=== PATIENT | female | born 1930 | race Hispanic/Latino ===

== ENCOUNTER 2017-01-18 15:16 | Inpatient (IN) | payer MEDICARE ==
[2017-01-18] MEDS ORDERED: ZOFRAN IV ONE (15:40)
[2017-01-18] MEDS ORDERED: ZOFRAN ONE (15:40)
--- NOTE | 2017-01-18 17:19 | Emergency Department Report ---
ED Fall HPI - General Chief Complaint: Fall Stated Complaint: FALL Time Seen by Provider: 01/18/17 16:45 Source: patient, EMS Mode of arrival: Stretcher - History of Present Illness MD Complaint: fall -: Sudden Fall From: standing When Fall Occurred: 1 hour [employer] Fall Witnessed: yes, by family Place Fall Occurred: home Loss of Consciousness: none Prolonged Down Time?: no Symptoms Prior to Fall: none Location: head Severity: mild Severity scale (0 -10): 3 Quality: sharp, dull Context: tripped/slipped Associated Symptoms: headache. denies: neck pain, chest paint, shortness of breath, abdominal pain, hematuria, lightheaded, vertigo - Related Data Previous Rx's Medication Instructions Recorded Last Taken Type Ondansetron [Zofran Odt] 4 mg PO Q8HR #12 tab.rapdis 01/18/17 Unknown Rx Allergies Allergy/AdvReac Type Severity Reaction Status Date / Time Penicillins Allergy Unknown Verified 01/18/17 15:55 ED Review of Systems ROS: Stated complaint: FALL Other details as noted in HPI Comment: Unobtainable due to pts medical conditions ED Past Medical Hx - Past Medical History Hx Diabetes: Yes - Surgical History Hx Appendectomy: Yes Additional Surgical History: R shoulder, R knee - Social History Smoking Status: Never Smoker Substance Use Type: None - Medications Home Medications: Home Medications Medication Instructions Recorded Confirmed Last Taken Type Ondansetron [Zofran Odt] 4 mg PO Q8HR #12 tab.rapdis 01/18/17 Unknown Rx ED Physical Exam - General Limitations: No Limitations General appearance: alert, in no apparent distress - Eye Eye exam: Present: normal appearance, PERRL - ENT ENT exam: Present: normal exam, mucous membranes moist - Neck Neck exam: Present: normal inspection - Respiratory Respiratory exam: Present: normal lung sounds bilaterally. Absent: respiratory distress - Cardiovascular Cardiovascular Exam: Present: regular rate, normal rhythm. Absent: systolic murmur, diastolic murmur, rubs, gallop - GI/Abdominal GI/Abdominal exam: Present: soft, normal bowel sounds - Extremities Exam Extremities exam: Present: normal inspection - Back Exam Back exam: Present: normal inspection, full ROM - Neurological Exam Neurological exam: Present: alert, altered, oriented X3, CN II-XII intact, normal gait - Psychiatric Psychiatric exam: Present: normal affect, normal mood - Skin Skin exam: Present: warm, dry, intact, normal color. Absent: rash ED Course Vital Signs 01/18/17 01/18/17 01/18/17 15:50 16:52 16:55 Temperature 98.1 F Pulse Rate 74 75 Respiratory 18 18 18 Rate Blood Pressure 208/80 Blood Pressure 160/79 [Left] O2 Sat by Pulse 99 99 99 Oximetry - Laceration /Wound Repair Face Wound Location: face Wound's Depth, Shape: superficial Wound Explored: clean Betadine Prep?: Yes Anesthesia: 1% Lidocaine Wound Debrided: minimal Wound Repaired With: sutures Suture Size/Type: 5:0 Layer Closure?: Yes Deep Layer Suture Size/Type: 5:0 Number Deep Layer Sutures: 6 Sterile Dressing Applied?: Yes ED Medical Decision Making - Medical Decision Making patient had a ground level fall after tripping while moving a chair and landed on her head , no LOC per and brought here for care. head CT negative and no signs of bleeding or fractures, wound were repaired by me, and patient tolerated well, she still feels a bit nauseated and feels unable to go home with her 89 yo , i consulted with dr. canales and agree with admission. Critical care attestation.: If time is entered above; I have spent that time in minutes in the direct care of this critically ill patient, excluding procedure time. ED Disposition Clinical Impression: Nausea & vomiting Disposition: OP ADMITTED IP TO THIS HOSP Is pt being admited?: Yes Does the pt Need Aspirin: No Condition: Good Instructions: Suture Care (ED), Laceration (ED), Concussion (ED), Minor Head Injury (ED) Prescriptions: Ondansetron [Zofran Odt] 4 mg PO Q8HR #12 tab.rapdis Referrals: PRIMARY CARE, [Primary Care Provider] - 3-5 Days Time of Disposition: 19:42
--- NOTE | 2017-01-18 17:39 | Cat Scan Report ---
FINAL REPORT PROCEDURE: CT HEAD/BRAIN WO CON TECHNIQUE: Computerized tomography of the head was performed without contrast material. HISTORY: fall, CANTU COMPARISON: No prior studies are available for comparison. FINDINGS: Brain: There is no evidence of intracranial hemorrhage. No parenchymal hemorrhage is seen. No mass lesions or mass effect is identified. No abnormal extra-axial fluid collections are seen. There is a well-circumscribed calcified nodular density projecting inferiorly from the left side of the tentorium measuring 1.5 x 1.3 centimeters which appears represent a calcified meningioma. No significant mass effect is seen small old area of encephalomalacia visualized posterior lateral aspect of the right cerebellar hemisphere. There is some decreased density seen in the periventricular white matter without mass effect. This is fairly symmetric and does not exhibit any mass effect consistent with gliosis probably on the basis of microvascular disease or white matter changes of aging. Ventricles: The ventricles, sulcal pattern and fissures are prominent consistent with atrophy. Bones: No evidence of acute fracture. There is artifact from a bandage overlying the right side of the forehead. Laceration appears to be present in the same location Paranasal sinuses: clear Mastoid air cells: clear IMPRESSION: There is evidence of moderate atrophy and gliosis. No evidence of intracranial hemorrhage or skull fracture. Small old area of encephalomalacia right cerebellar hemisphere as described. Densely calcified nodular density projects inferiorly from the left side of the tentorium suggesting a small calcified meningioma. No significant mass effect is visualized Laceration and bandaging seen overlying the right side of the forehead.
[2017-01-18] MEDS ORDERED: XYLOCAINE 1%/ EPI 1:100,000 INFILTRATI ONE (17:53)
[2017-01-18] MEDS ORDERED: REGLAN IV ONE (17:53)
[2017-01-18] MEDS ORDERED: BOOSTRIX IM ONE (19:00)
[2017-01-18 20:10] LABS: Hematocrit 35.5 % (30.3-42.9); Hemoglobin 11.1 gm/dl (10.1-14.3); Mean Corpuscular HGB Conc 31 % (30-34); Mean Corpuscular Hemoglobin 27 pg (28-32); Mean Corpuscular Volume 86 fl (79-97); Red Blood Count 4.13 M/mm3 (3.65-5.03); Red Cell Distribution Width 16.5 % (13.2-15.2); White Blood Count 18.7 K/mm3 (4.5-11.0)
[2017-01-18 20:20] LABS: INR 0.96 (0.87-1.13); Partial Thromboplastin Time < 20.0 Sec. (24.2-36.6)
[2017-01-18 20:36] LABS: Alanine Aminotransferase 12 units/L (7-56); Albumin/Globulin Ratio 1.1 %; Alkaline Phosphatase 70 units/L (35-129); Anion Gap 22 mmol/L; BUN/Creatinine Ratio 21.25; Bilirubin,Total 0.2 mg/dL (0.1-1.2); Blood Urea Nitrogen 17 mg/dL (7-17); Calcium 9.2 mg/dL (8.4-10.2); Carbon Dioxide 21 mmol/L (22-30); Chloride 95.5 mmol/L (98-107); Glucose 265 mg/dL (65-100); Potassium 4.6 mmol/L (3.6-5.0); Sodium 134 mmol/L (137-145); Total Protein 7.8 g/dL (6.3-8.2)
--- NOTE | 2017-01-18 20:44 | Admit Criteria Form ---
Admission Criteria Documentation: VOMITING Clinical Indications for Admission to Inpatient Care ( Place 'X' for any and all applicable criteria): Admission is indicated for ANY ONE of the following(1)(2)(3): [ X]I. Inpatient admission required rather than observation care because of ANY ONE of the following: [ ]i) Hemodynamic instability that is severe or persistent [ ]ii) Vomiting that is severe or persistent [ ]iii) Severe electrolyte abnormalities requiring inpatient care [ ]iv) Severe pain requiring acute inpatient management [ ]v) High fever or infection requiring inpatient admission as indicated by ANY ONE of the following(7)(8): [ ]1) Appropriate outpatient or observation care antimicrobial treatment unavailable, not effective, or not feasible [ ]2) Documented bacteremia [ ]3) Temp >104.9 degrees F (40.5 degrees C) (oral) [ ]4) Temp >103.1 degrees F (39.5 C) (oral) or <96.8 degrees F (36 C) (rectal) that does not respond to all emergency treatment measures [ ]vi) Acute renal failure [ ]vii) IV fluid to replace significant ongoing losses (greater than 3 L/m2 per day) [ ]viii) Parenteral nutrition regimen that must be implemented on inpatient basis [X ]ix) Other condition, treatment or monitoring requiring inpatient admission [ ]II. Complete or partial gastrointestinal obstruction [ ]III. Other cause of vomiting requiring hospitalization (eg, poisoning, increased intracranial pressure) [ ]IV. Vomiting due to significant metabolic derangement (eg, severe hypercalcemia, diabetic ketoacidosis) Extended stay beyond goal length of stay may be needed for(1)(4): [ ]a) Severe vomiting [ ]b) Persistent vomiting, vital sign changes, severe electrolyte imbalance , or diagnosed cause of vomiting that requires continued hospitalization (eg, gastrointestinal obstruction , increased intracranial pressure) [ ]c) Surgery to treat identified causes of vomiting (eg, bowel obstruction , intracranial process) [ ]d) Comorbid illness that requires inpatient care (eg, acute heart failure , renal failure) [ ]e) Need for inpatient endoscopy The original [facility] [facility] content created by [employer] has been revised. The portions of the content which have been revised are identified through the use of italic text or in bold, and [facility] [employer] has neither reviewed nor approved the modified material. All other unmodified content is copyright [facility]. Please see references footnoted in the original [facility] edition 2016 Admission Criteria Met: Yes
[2017-01-18 21:16] LABS: Platelet Count 172 K/mm3 (140-440)
[2017-01-18 22:36] LABS: Blastocytes % (Manual) 0 %; Eosinophils % (Manual) 0 % (0.0-4.3)
--- NOTE | 2017-01-18 22:37 | History and Physical Report ---
History of Present Illness Date of examination: 01/18/17 Date of admission: 01/18/17 19:43 Chief complaint: Fall with concussion and Laceration to forehead nose and cheek. History of present illness: 86 y/o female with hx of diabetes tripped and fell down .Had concussion injury to head and lacerations to forehead nose and rt cheek.No LOC.No AMS. No SOB. Past History Past Medical History: diabetes Past Surgical History: Other (Rt Knee and shoulder surgery) Social history: , lives with family. denies: smoking, alcohol abuse Family history: no significant family history Medications and Allergies Allergies Allergy/AdvReac Type Severity Reaction Status Date / Time Penicillins Allergy Unknown Verified 01/18/17 15:55 Home Medications Medication Instructions Recorded Confirmed Last Taken Type Ondansetron [Zofran Odt] 4 mg PO Q8HR #12 tab.rapdis 01/18/17 Unknown Rx Review of Systems All systems: negative Constitutional: no weight loss, no weight gain Ears, nose, mouth and throat: no sore throat, no swelling in mouth, no swelling in throat Cardiovascular: no chest pain, no orthopnea, no palpitations, no syncope, no lightheadedness, no shortness of breath Respiratory: no cough with sputum, no excessive sputum, no hemoptysis Gastrointestinal: no nausea, no vomiting, no diarrhea, no constipation Genitourinary Female: no dysuria, no urinary frequency, no urgency, no stress incontinence Menstruation: ammenorrhea Musculoskeletal: neck pain, no low back pain Integumentary: other (Laceration to forehead rt nose and cheek.), no rash, no pruritis, no redness Neurological: change in mentation (for couple of hours), confusion, no seizures , no syncope, no change in speech Psychiatric: no anxiety, no depression Endocrine: no cold intolerance, no heat intolerance, no polyphagia, no excessive thirst, no polydipsia, no polyuria Hematologic/Lymphatic: no easy bruising, no easy bleeding Allergic/Immunologic: no urticaria, no allergic rhinitis, no wheezing Exam - Constitutional Vitals: Temp Pulse Resp BP Pulse Ox 98.1 F 86 18 138/42 98 01/18/17 15:50 01/18/17 20:00 01/18/17 20:00 01/18/17 20:00 01/18/17 20:00 General appearance: Present: no acute distress, well-nourished, other ( Laceration to forehead rt and nose and rt cheek.Deep laceration on Rt forehead) - EENT Eyes: Present: PERRL ENT: hearing intact, clear oral mucosa - Neck Neck: Present: supple, normal ROM - Respiratory Respiratory effort: normal Respiratory: bilateral: CTA - Cardiovascular Rhythm: regular Heart Sounds: Present: S1 & S2. Absent: rub, click - Extremities Extremities: pulses symmetrical, No edema Peripheral Pulses: within normal limits - Abdominal General gastrointestinal: Present: soft, non-tender, non-distended, normal bowel sounds Female genitourinary: Present: normal - Integumentary Integumentary: Present: clear, warm, dry - Musculoskeletal Musculoskeletal: gait normal, strength equal bilaterally - Psychiatric Psychiatric: appropriate mood/affect, intact judgment & insight - Neurologic Neurologic: CNII-XII intact, moves all extremities - Allied Health Allied health notes reviewed: nursing, case management Results - Labs CBC & Chem 7: 01/18/17 19:46 01/18/17 19:46 Labs: Laboratory Last Values WBC 18.7 K/mm3 (4.5-11.0) H 01/18/17 19:46 RBC 4.13 M/mm3 (3.65-5.03) 01/18/17 19:46 Hgb 11.1 gm/dl (10.1-14.3) 01/18/17 19:46 Hct 35.5 % (30.3-42.9) 01/18/17 19:46 MCV 86 fl (79-97) 01/18/17 19:46 MCH 27 pg (28-32) L 01/18/17 19:46 MCHC 31 % (30-34) 01/18/17 19:46 RDW 16.5 % (13.2-15.2) H 01/18/17 19:46 Plt Count 172 K/mm3 (140-440) 01/18/17 19:46 Seg Neutrophils % [employer] 01/18/17 19:46 PT 12.7 Sec. (12.2-14.9) 01/18/17 19:46 INR 0.96 (0.87-1.13) 01/18/17 19:46 APTT < 20.0 Sec. (24.2-36.6) L 01/18/17 19:46 Sodium 134 mmol/L (137-145) L 01/18/17 19:46 Potassium 4.6 mmol/L (3.6-5.0) 01/18/17 19:46 Chloride 95.5 mmol/L (98-107) L 01/18/17 19:46 Carbon Dioxide 21 mmol/L (22-30) L 01/18/17 19:46 Anion Gap 22 mmol/L 01/18/17 19:46 BUN 17 mg/dL (7-17) 01/18/17 19:46 Creatinine 0.8 mg/dL (0.7-1.2) 01/18/17 19:46 Estimated GFR > 60 ml/min 01/18/17 19:46 BUN/Creatinine Ratio 21.25 % 01/18/17 19:46 Glucose 265 mg/dL (65-100) H 01/18/17 19:46 POC Glucose 279 (70-105) H 01/18/17 21:38 Calcium 9.2 mg/dL (8.4-10.2) 01/18/17 19:46 Total Bilirubin 0.2 mg/dL (0.1-1.2) 01/18/17 19:46 AST 20 units/L (5-40) 01/18/17 19:46 ALT 12 units/L (7-56) 01/18/17 19:46 Alkaline Phosphatase 70 units/L (35-129) 01/18/17 19:46 Total Protein 7.8 g/dL (6.3-8.2) 01/18/17 19:46 Albumin 4.0 g/dL (3.9-5) 01/18/17 19:46 Albumin/Globulin Ratio 1.1 % 01/18/17 19:46 Short CBC 01/18/17 Range/Units 19:46 WBC 18.7 H (4.5-11.0) K/mm3 Hgb 11.1 (10.1-14.3) gm/dl Hct 35.5 (30.3-42.9) % Plt Count 172 (140-440) K/mm3 BMP 01/18/17 19:46 Sodium 134 L Potassium 4.6 Chloride 95.5 L Carbon Dioxide 21 L BUN 17 Creatinine 0.8 Glucose 265 H Calcium 9.2 Liver Function 01/18/17 Range/Units 19:46 Total Bilirubin 0.2 (0.1-1.2) mg/dL AST 20 (5-40) units/L ALT 12 (7-56) units/L Alkaline Phosphatase 70 (35-129) units/L Albumin 4.0 (3.9-5) g/dL - Imaging and Cardiology Chest x-ray: report reviewed (NAF) CT Scan - head: report reviewed (NAF) Assessment and Plan Advance Directives: Yes (full code) VTE prophylaxis?: Chemical ( is) Plan of care discussed with patient/family: Yes - Patient Problems (1) Concussion Current Visit: Yes Status: Acute Qualifiers: Encounter type: initial encounter Loss of consciousness presence/duration: without LOC Qualified Code(s): S06.0X0A - Concussion without loss of consciousness, initial encounter Plan to address problem: Observe for 24 hrs Discharge tomorrow if able to walk. (2) Laceration Current Visit: Yes Status: Acute Plan to address problem: Patient had Laceration repaired in ER on forehead.The nose and cheek lacerations are superficial. (3) Diabetes Current Visit: Yes Status: Chronic Qualifiers: Diabetes mellitus type: type 2 Diabetes mellitus complication status: without complication Diabetes mellitus complication detail: D Diabetic retinopathy severity: D Proliferative retinopathy type: P Diabetes mellitus macular edema: D Diabetes mellitus correction insulin use: without correction use Laterality: L Chronic kidney disease stage: C Qualified Code(s): E11.9 - Type 2 diabetes mellitus without complications Plan to address problem: Coverage for now. May need to be on oral hypoglycemics at time of discharge. Or PCP canstart the hypoglycemics. (4) Leukocytosis Current Visit: Yes Status: Acute Qualifiers: Leukocytosis type: L Plan to address problem: ??Stress induced. (5) DVT prophylaxis Current Visit: Yes Status: Acute Plan to address problem: On lovenox
[2017-01-18 22:41] LABS: Anisocytosis 1+; Ovalocytes 1+
[2017-01-18 22:47] LABS: Diff Status Complete
[2017-01-19] MEDS: NACL 0.9% 1000 ML 1,000 ML IV SCH (00:24)
[2017-01-19] MEDS: ZOFRAN IV PRN ×3 (00:24→13:11)
[2017-01-19] MEDS: NOVOLOG SUB-Q SCH ×5 (00:35→22:54)
--- NOTE | 2017-01-19 08:54 | XRay Report ---
AP CHEST : 01/18/17 15:16:00 CLINICAL: Fall. COMPARISON:04/05/09 FINDINGS: Cardiomegaly. Normal pulmonary vessels.Aortic calcification. The lungs are normally expanded and clear. The bones and soft tissues are unremarkable.No fracture. No pneumothorax. IMPRESSION: No acute cardiopulmonary process and no apparent injury from fall.
[2017-01-19 09:29] LABS: Basophils % (Auto) 0.1 % (0.0-1.8); Hematocrit 30.8 % (30.3-42.9); Hemoglobin 9.7 gm/dl (10.1-14.3); Mean Corpuscular HGB Conc 31 % (30-34); Mean Corpuscular Hemoglobin 27 pg (28-32); Mean Corpuscular Volume 86 fl (79-97); Platelet Count 304 K/mm3 (140-440); Red Blood Count 3.57 M/mm3 (3.65-5.03); Red Cell Distribution Width 16.4 % (13.2-15.2); White Blood Count 14.1 K/mm3 (4.5-11.0)
[2017-01-19 09:40] LABS: Anion Gap 17 mmol/L; Blood Urea Nitrogen 16 mg/dL (7-17); Calcium 8.5 mg/dL (8.4-10.2); Carbon Dioxide 25 mmol/L (22-30); Chloride 98.2 mmol/L (98-107); Glucose 155 mg/dL (65-100); Potassium 4.3 mmol/L (3.6-5.0); Sodium 136 mmol/L (137-145)
--- NOTE | 2017-01-19 15:28 | Progress Note ---
Assessment and Plan Assessment and plan: 86-year-old woman with past medical history of diabetes who presents after she was found on the floor by a neighbor. She state that she does not actually remember what happened, she was walking down the stairs, and neck and she found herself on the ground. And her neighbor found her. She denies any chest pain prior to it, she denies any prodrome or any symptoms prior to passing out. She just remembers waking up on the floor with a headache and some nausea. Of note she actually had multiple syncopal episodes recently, her family had brought her life alert which she refuses to use, she's been found by a neighbor's, workers who happened to be passing by around her house and she had passed out and bleed on the floor for a while. She lives with her who is 95 years old, and he did not have any help in the house. 1. Syncope Concern for cardiac etiology given the presentation. Put her on telemetry, check a troponin, obtain echocardiogram. Cardiology consultation. 2. Trauma CT of the head does not show any intracranial bleed or intracranial injury. Treatment with pain medications 3. Nausea this is most likely due to concussion, treated with antiemetics 4. Diabetes Continue insulins History Interval history: she is c/o headache in middle of her forehead where she hit it, she is also c/o nausea that occurs when she moves her head Hospitalist Physical - Physical exam Narrative exam: General: Patient appears well in no distress HEENT: Laceration on the forehead, multiple bruising consistent with facial trauma cardiac: S1-S2 heard lungs: clear to auscultation, abdomen: soft, nontender, nondistended bowel sounds positive extremities: no edema clubbing or cyanosis Skin: no rash or lesion Neuro: no focal deficit Psych: appropriate behavior and mood, cognition intact - Constitutional Vitals: Temp Pulse Resp BP Pulse Ox 98.9 F 92 H 16 151/69 98 01/19/17 08:00 01/19/17 08:00 01/19/17 08:00 01/19/17 08:00 01/19/17 08:00 General appearance: Present: no acute distress, well-nourished, other ( Laceration to forehead rt and nose and rt cheek.Deep laceration on Rt forehead) Results - Labs CBC & Chem 7: 01/19/17 09:08 01/19/17 09:08 Labs: Laboratory Last Values WBC 14.1 K/mm3 (4.5-11.0) H 01/19/17 09:08 RBC 3.57 M/mm3 (3.65-5.03) L 01/19/17 09:08 Hgb 9.7 gm/dl (10.1-14.3) L 01/19/17 09:08 Hct 30.8 % (30.3-42.9) 01/19/17 09:08 MCV 86 fl (79-97) 01/19/17 09:08 MCH 27 pg (28-32) L 01/19/17 09:08 MCHC 31 % (30-34) 01/19/17 09:08 RDW 16.4 % (13.2-15.2) H 01/19/17 09:08 Plt Count 304 K/mm3 (140-440) 01/19/17 09:08 Lymph % (Auto) 13.0 % (13.4-35.0) L 01/19/17 09:08 [place] % (Auto) 7.4 % (0.0-7.3) H 01/19/17 09:08 Eos % (Auto) 0.0 % (0.0-4.3) 01/19/17 09:08 Baso % (Auto) 0.1 % (0.0-1.8) 01/19/17 09:08 Lymph # 1.8 K/mm3 (1.2-5.4) 01/19/17 09:08 [place] # 1.0 K/mm3 (0.0-0.8) H 01/19/17 09:08 Eos # 0.0 K/mm3 (0.0-0.4) 01/19/17 09:08 Baso # 0.0 K/mm3 (0.0-0.1) 01/19/17 09:08 Add Manual Diff Complete 01/18/17 19:46 Total Counted 100 01/18/17 19:46 Seg Neutrophils % 79.5 % (40.0-70.0) H 01/19/17 09:08 Seg Neuts % (Manual) 82.0 % (40.0-70.0) H 01/18/17 19:46 Band Neutrophils % 8.0 % 01/18/17 19:46 Lymphocytes % (Manual) 6.0 % (13.4-35.0) L 01/18/17 19:46 Reactive Lymphs % (Man) 0 % 01/18/17 19:46 Monocytes % (Manual) 3.0 % (0.0-7.3) 01/18/17 19:46 Eosinophils % (Manual) 0 % (0.0-4.3) 01/18/17 19:46 Basophils % (Manual) 1.0 % (0.0-1.8) 01/18/17 19:46 Metamyelocytes % 0 % 01/18/17 19:46 Myelocytes % 0 % 01/18/17 19:46 Promyelocytes % 0 % 01/18/17 19:46 Blast Cells % 0 % 01/18/17 19:46 Nucleated RBC % Not Reportable 01/18/17 19:46 Seg Neutrophils # 11.2 K/mm3 (1.8-7.7) H 01/19/17 09:08 Seg Neutrophils # Man 15.3 K/mm3 (1.8-7.7) H 01/18/17 19:46 Band Neutrophils # 1.5 K/mm3 01/18/17 19:46 Lymphocytes # (Manual) 1.1 K/mm3 (1.2-5.4) L 01/18/17 19:46 Abs React Lymphs (Man) 0.0 K/mm3 01/18/17 19:46 Monocytes # (Manual) 0.6 K/mm3 (0.0-0.8) 01/18/17 19:46 Eosinophils # (Manual) 0.0 K/mm3 (0.0-0.4) 01/18/17 19:46 Basophils # (Manual) 0.2 K/mm3 (0.0-0.1) H 01/18/17 19:46 Metamyelocytes # 0.0 K/mm3 01/18/17 19:46 Myelocytes # 0.0 K/mm3 01/18/17 19:46 Promyelocytes # 0.0 K/mm3 01/18/17 19:46 Blast Cells # 0.0 K/mm3 01/18/17 19:46 WBC Morphology Not Reportable 01/18/17 19:46 Hypersegmented Neuts Not Reportable 01/18/17 19:46 Hyposegmented Neuts Not Reportable 01/18/17 19:46 Hypogranular Neuts Not Reportable 01/18/17 19:46 Smudge Cells Not Reportable 01/18/17 19:46 Toxic Granulation Not Reportable 01/18/17 19:46 Toxic Vacuolation Not Reportable 01/18/17 19:46 Dohle Bodies Not Reportable 01/18/17 19:46 Pelger-Huet Anomaly Not Reportable 01/18/17 19:46 Vicente Rods Not Reportable 01/18/17 19:46 Platelet Estimate Appears normal 01/18/17 19:46 Clumped Platelets Not Reportable 01/18/17 19:46 Plt Clumps, EDTA Not Reportable 01/18/17 19:46 Large Platelets Not Reportable 01/18/17 19:46 Giant Platelets Not Reportable 01/18/17 19:46 Platelet Satelliting Not Reportable 01/18/17 19:46 Plt Morphology Comment Not Reportable 01/18/17 19:46 RBC Morphology Not Reportable 01/18/17 19:46 Dimorphic RBCs Not Reportable 01/18/17 19:46 Polychromasia Not Reportable 01/18/17 19:46 Hypochromasia Not Reportable 01/18/17 19:46 Poikilocytosis Not Reportable 01/18/17 19:46 Anisocytosis 1+ 01/18/17 19:46 Microcytosis Not Reportable 01/18/17 19:46 Macrocytosis Not Reportable 01/18/17 19:46 Spherocytes Not Reportable 01/18/17 19:46 Pappenheimer Bodies Not Reportable 01/18/17 19:46 Sickle Cells Not Reportable 01/18/17 19:46 Target Cells Not Reportable 01/18/17 19:46 Tear Drop Cells Not Reportable 01/18/17 19:46 Ovalocytes 1+ 01/18/17 19:46 Helmet Cells Not Reportable 01/18/17 19:46 Gomes-Bluford Bodies Not Reportable 01/18/17 19:46 [place] Rings Not Reportable 01/18/17 19:46 [place] Cells Not Reportable 01/18/17 19:46 Bite Cells Not Reportable 01/18/17 19:46 Crenated Cell Not Reportable 01/18/17 19:46 Elliptocytes Not Reportable 01/18/17 19:46 Acanthocytes (Spur) Not Reportable 01/18/17 19:46 Rouleaux Not Reportable 01/18/17 19:46 Hemoglobin C Crystals Not Reportable 01/18/17 19:46 Schistocytes Not Reportable 01/18/17 19:46 Malaria parasites Not Reportable 01/18/17 19:46 Thor Bodies Not Reportable 01/18/17 19:46 Hem Pathologist Commnt No 01/18/17 19:46 PT 12.7 Sec. (12.2-14.9) 01/18/17 19:46 INR 0.96 (0.87-1.13) 01/18/17 19:46 APTT < 20.0 Sec. (24.2-36.6) L 01/18/17 19:46 Sodium 136 mmol/L (137-145) L 01/19/17 09:08 Potassium 4.3 mmol/L (3.6-5.0) 01/19/17 09:08 Chloride 98.2 mmol/L (98-107) 01/19/17 09:08 Carbon Dioxide 25 mmol/L (22-30) 01/19/17 09:08 Anion Gap 17 mmol/L 01/19/17 09:08 BUN 16 mg/dL (7-17) 01/19/17 09:08 Creatinine 0.8 mg/dL (0.7-1.2) 01/19/17 09:08 Estimated GFR > 60 ml/min 01/19/17 09:08 BUN/Creatinine Ratio 20.00 % 01/19/17 09:08 Glucose 155 mg/dL (65-100) H 01/19/17 09:08 POC Glucose 143 (70-105) H 01/19/17 10:52 Calcium 8.5 mg/dL (8.4-10.2) 01/19/17 09:08 Total Bilirubin 0.2 mg/dL (0.1-1.2) 01/18/17 19:46 AST 20 units/L (5-40) 01/18/17 19:46 ALT 12 units/L (7-56) 01/18/17 19:46 Alkaline Phosphatase 70 units/L (35-129) 01/18/17 19:46 Total Protein 7.8 g/dL (6.3-8.2) 01/18/17 19:46 Albumin 4.0 g/dL (3.9-5) 01/18/17 19:46 Albumin/Globulin Ratio 1.1 % 01/18/17 19:46 - Imaging and Cardiology Chest x-ray: image reviewed (no infiltrate)
[2017-01-19] MEDS: MORPHINE IV PRN (22:35)
[2017-01-19] MEDS: APRESOLINE IV PRN (22:35)
[2017-01-20] MEDS: ZOFRAN IV PRN ×2 (07:52→22:54)
[2017-01-20] MEDS: NACL 0.9% 1000 ML 1,000 ML IV SCH (07:52)
[2017-01-20] MEDS: NOVOLOG SUB-Q SCH ×4 (08:00→22:13)
--- NOTE | 2017-01-20 10:12 | Progress Note ---
Assessment and Plan Assessment and plan: 86-year-old woman with past medical history of diabetes who presents after she was found on the floor by a neighbor. She denies any chest pain prior to it, she denies any prodrome or any symptoms prior to passing out. Of note she actually had multiple syncopal episodes recently, her family had brought her life alert which she refuses to use, She lives with her who is 95 years old, and he did not have any help in the house. 1. Syncope Concern for cardiac etiology given the presentation. placed her on telemetry, monitor troponin, 2D echocardiogram showed normal EF. Noted Cardiology recommendation. Will do PT eval before discharge to assess functional mobility and gait training. 2. S/P fall with facial injury CT of the head does not show any intracranial bleed or intracranial injury. Treatment with pain medications 3. Nausea this is most likely due to concussion, treated with antiemetics 4. Diabetes Continue insulins, ADA diey History Interval history: Patient seen and examined. Medical records and medication list reviewed. No acute event overnight noted by the RN. Patient denies any chest pain or difficulty breathing. Patient is tolerating diet. had multiple fall recently Discussed plan of care at bedside with patient. Hospitalist Physical - Physical exam Narrative exam: GENERAL: elderly WF lying on bed appeared to be in no discomfort. HEENT: Normocephalic. Atraumatic. No conjunctival congestion or icterus. Patient has moist mucous membranes. NECK: Supple. Trachea midline. CHEST/LUNGS: Clear to auscultated bilaterally, breathing nonlabored. No wheezes crackles or rhonchi. HEART/CARDIOVASCULAR: Regular in rate and rhythm. S1 and S2 positive. ABDOMEN: Abdomen is soft, nontender. Patient has normal bowel sounds. SKIN: There is no rash. Warm and dry. NEURO: No focal motor deficit. Follows command. MUSCULOSKELETAL: No joint effusion or tenderness. EXTRIMITY: No edema, no cyanosis or clubbing. PSYCH: Cooperative. - Constitutional Vitals: Temp Pulse Resp BP Pulse Ox 98.8 F 76 20 160/59 93 01/20/17 08:59 01/20/17 08:59 01/20/17 08:59 01/20/17 08:59 01/19/17 23:30 General appearance: Present: no acute distress, well-nourished, other ( Laceration to forehead rt and nose and rt cheek.Deep laceration on Rt forehead) Results - Labs CBC & Chem 7: 01/19/17 09:08 01/19/17 09:08 Labs: Laboratory Last Values WBC 14.1 K/mm3 (4.5-11.0) H 01/19/17 09:08 RBC 3.57 M/mm3 (3.65-5.03) L 01/19/17 09:08 Hgb 9.7 gm/dl (10.1-14.3) L 01/19/17 09:08 Hct 30.8 % (30.3-42.9) 01/19/17 09:08 MCV 86 fl (79-97) 01/19/17 09:08 MCH 27 pg (28-32) L 01/19/17 09:08 MCHC 31 % (30-34) 01/19/17 09:08 RDW 16.4 % (13.2-15.2) H 01/19/17 09:08 Plt Count 304 K/mm3 (140-440) 01/19/17 09:08 Lymph % (Auto) 13.0 % (13.4-35.0) L 01/19/17 09:08 [place] % (Auto) 7.4 % (0.0-7.3) H 01/19/17 09:08 Eos % (Auto) 0.0 % (0.0-4.3) 01/19/17 09:08 Baso % (Auto) 0.1 % (0.0-1.8) 01/19/17 09:08 Lymph # 1.8 K/mm3 (1.2-5.4) 01/19/17 09:08 [place] # 1.0 K/mm3 (0.0-0.8) H 01/19/17 09:08 Eos # 0.0 K/mm3 (0.0-0.4) 01/19/17 09:08 Baso # 0.0 K/mm3 (0.0-0.1) 01/19/17 09:08 Add Manual Diff Complete 01/18/17 19:46 Total Counted 100 01/18/17 19:46 Seg Neutrophils % 79.5 % (40.0-70.0) H 01/19/17 09:08 Seg Neuts % (Manual) 82.0 % (40.0-70.0) H 01/18/17 19:46 Band Neutrophils % 8.0 % 01/18/17 19:46 Lymphocytes % (Manual) 6.0 % (13.4-35.0) L 01/18/17 19:46 Reactive Lymphs % (Man) 0 % 01/18/17 19:46 Monocytes % (Manual) 3.0 % (0.0-7.3) 01/18/17 19:46 Eosinophils % (Manual) 0 % (0.0-4.3) 01/18/17 19:46 Basophils % (Manual) 1.0 % (0.0-1.8) 01/18/17 19:46 Metamyelocytes % 0 % 01/18/17 19:46 Myelocytes % 0 % 01/18/17 19:46 Promyelocytes % 0 % 01/18/17 19:46 Blast Cells % 0 % 01/18/17 19:46 Nucleated RBC % Not Reportable 01/18/17 19:46 Seg Neutrophils # 11.2 K/mm3 (1.8-7.7) H 01/19/17 09:08 Seg Neutrophils # Man 15.3 K/mm3 (1.8-7.7) H 01/18/17 19:46 Band Neutrophils # 1.5 K/mm3 01/18/17 19:46 Lymphocytes # (Manual) 1.1 K/mm3 (1.2-5.4) L 01/18/17 19:46 Abs React Lymphs (Man) 0.0 K/mm3 01/18/17 19:46 Monocytes # (Manual) 0.6 K/mm3 (0.0-0.8) 01/18/17 19:46 Eosinophils # (Manual) 0.0 K/mm3 (0.0-0.4) 01/18/17 19:46 Basophils # (Manual) 0.2 K/mm3 (0.0-0.1) H 01/18/17 19:46 Metamyelocytes # 0.0 K/mm3 01/18/17 19:46 Myelocytes # 0.0 K/mm3 01/18/17 19:46 Promyelocytes # 0.0 K/mm3 01/18/17 19:46 Blast Cells # 0.0 K/mm3 01/18/17 19:46 WBC Morphology Not Reportable 01/18/17 19:46 Hypersegmented Neuts Not Reportable 01/18/17 19:46 Hyposegmented Neuts Not Reportable 01/18/17 19:46 Hypogranular Neuts Not Reportable 01/18/17 19:46 Smudge Cells Not Reportable 01/18/17 19:46 Toxic Granulation Not Reportable 01/18/17 19:46 Toxic Vacuolation Not Reportable 01/18/17 19:46 Dohle Bodies Not Reportable 01/18/17 19:46 Pelger-Huet Anomaly Not Reportable 01/18/17 19:46 Vicente Rods Not Reportable 01/18/17 19:46 Platelet Estimate Appears normal 01/18/17 19:46 Clumped Platelets Not Reportable 01/18/17 19:46 Plt Clumps, EDTA Not Reportable 01/18/17 19:46 Large Platelets Not Reportable 01/18/17 19:46 Giant Platelets Not Reportable 01/18/17 19:46 Platelet Satelliting Not Reportable 01/18/17 19:46 Plt Morphology Comment Not Reportable 01/18/17 19:46 RBC Morphology Not Reportable 01/18/17 19:46 Dimorphic RBCs Not Reportable 01/18/17 19:46 Polychromasia Not Reportable 01/18/17 19:46 Hypochromasia Not Reportable 01/18/17 19:46 Poikilocytosis Not Reportable 01/18/17 19:46 Anisocytosis 1+ 01/18/17 19:46 Microcytosis Not Reportable 01/18/17 19:46 Macrocytosis Not Reportable 01/18/17 19:46 Spherocytes Not Reportable 01/18/17 19:46 Pappenheimer Bodies Not Reportable 01/18/17 19:46 Sickle Cells Not Reportable 01/18/17 19:46 Target Cells Not Reportable 01/18/17 19:46 Tear Drop Cells Not Reportable 01/18/17 19:46 Ovalocytes 1+ 01/18/17 19:46 Helmet Cells Not Reportable 01/18/17 19:46 Gomes-Antoine Bodies Not Reportable 01/18/17 19:46 [place] Rings Not Reportable 01/18/17 19:46 Kami Cells Not Reportable 01/18/17 19:46 Bite Cells Not Reportable 01/18/17 19:46 Crenated Cell Not Reportable 01/18/17 19:46 Elliptocytes Not Reportable 01/18/17 19:46 Acanthocytes (Spur) Not Reportable 01/18/17 19:46 Rouleaux Not Reportable 01/18/17 19:46 Hemoglobin C Crystals Not Reportable 01/18/17 19:46 Schistocytes Not Reportable 01/18/17 19:46 Malaria parasites Not Reportable 01/18/17 19:46 Thor Bodies Not Reportable 01/18/17 19:46 Hem Pathologist Commnt No 01/18/17 19:46 PT 12.7 Sec. (12.2-14.9) 01/18/17 19:46 INR 0.96 (0.87-1.13) 01/18/17 19:46 APTT < 20.0 Sec. (24.2-36.6) L 01/18/17 19:46 Sodium 136 mmol/L (137-145) L 01/19/17 09:08 Potassium 4.3 mmol/L (3.6-5.0) 01/19/17 09:08 Chloride 98.2 mmol/L (98-107) 01/19/17 09:08 Carbon Dioxide 25 mmol/L (22-30) 01/19/17 09:08 Anion Gap 17 mmol/L 01/19/17 09:08 BUN 16 mg/dL (7-17) 01/19/17 09:08 Creatinine 0.8 mg/dL (0.7-1.2) 01/19/17 09:08 Estimated GFR > 60 ml/min 01/19/17 09:08 BUN/Creatinine Ratio 20.00 % 01/19/17 09:08 Glucose 155 mg/dL (65-100) H 01/19/17 09:08 POC Glucose 191 (70-105) H 01/20/17 06:17 Hemoglobin A1c 6.5 % (4-6) H 01/20/17 06:35 Calcium 8.5 mg/dL (8.4-10.2) 01/19/17 09:08 Total Bilirubin 0.2 mg/dL (0.1-1.2) 01/18/17 19:46 AST 20 units/L (5-40) 01/18/17 19:46 ALT 12 units/L (7-56) 01/18/17 19:46 Alkaline Phosphatase 70 units/L (35-129) 01/18/17 19:46 Troponin T 0.030 ng/mL (0.00-0.029) H 01/19/17 15:54 Total Protein 7.8 g/dL (6.3-8.2) 01/18/17 19:46 Albumin 4.0 g/dL (3.9-5) 01/18/17 19:46 Albumin/Globulin Ratio 1.1 % 01/18/17 19:46 Triglycerides 102 mg/dL (2-149) 01/19/17 15:54 Cholesterol 165 mg/dL (50-199) 01/19/17 15:54 LDL Cholesterol Direct 112 mg/dL (50-130) 01/19/17 15:54 HDL Cholesterol 33 mg/dL (40-59) L 01/19/17 15:54 Cholesterol/HDL Ratio 5.00 % 01/19/17 15:54 - Imaging and Cardiology Chest x-ray: report reviewed CT Scan - head: report reviewed
[2017-01-20] MEDS: MORPHINE IV PRN ×2 (10:28→22:54)
--- NOTE | 2017-01-20 10:42 | Consultation ---
History of Present Illness Consult date: 01/20/17 Consult reason: syncope History of present illness: Patient admitted for syncope. She has had syncope before. Patient is a poor historian, She does not remember what happened. She passed out at her stairway at home. Daughter at bedside denies history of chest pain or shortness of breath. Daughter reports that patient did have a history of NH and stroke in the past. Daughter does not recall any cardiac work-up. Daughter denies seizure activity before. ECG is showing evidence of RBBB and old inferior Q waves. Echo is showing preserved LVEF and inferior wall hypokinesis. 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 Daughter does not want invasive therapy and elects only conservative therapy for her mother. Past History Past Medical History: diabetes Past Surgical History: Other (Rt Knee and shoulder surgery) Social history: , lives with family. denies: smoking, alcohol abuse Family history: no significant family history Medications and Allergies Allergies Allergy/AdvReac Type Severity Reaction Status Date / Time Penicillins Allergy Unknown Verified 01/18/17 15:55 Home Medications Medication Instructions Recorded Confirmed Last Taken Type Ondansetron [Zofran Odt] 4 mg PO Q8HR #12 tab.rapdis 01/18/17 Unknown Rx Active Meds: Active Medications Hydralazine HCl (Apresoline) 5 mg IV Q6HR PRN PRN Reason: Blood Pressure Stop: 01/21/17 23:16 Last Admin: 01/19/17 22:35 Dose: 5 mg Sodium Chloride (Nacl 0.9% 1000 Ml) 1,000 mls @ 75 mls/hr IV DIRECT SIRIA Last Admin: 01/20/17 07:52 Dose: 75 mls/hr Insulin Aspart (Novolog) 0 units SUB-Q ACHS SIRIA PRN Reason: Protocol Last Admin: 01/19/17 22:54 Dose: 1 units Metoclopramide HCl (Reglan) 10 mg IV Q6H PRN PRN Reason: Nausea And Vomiting Morphine Sulfate (Morphine) 2 mg IV Q4H PRN PRN Reason: Pain, Moderate (4-6) Last Admin: 01/20/17 10:28 Dose: 2 mg Ondansetron HCl (Zofran) 4 mg IV Q4H PRN PRN Reason: Nausea And Vomiting Last Admin: 01/20/17 07:52 Dose: 4 mg Review of Systems ROS unobtainable: due to mental status Physical Examination Vital Signs Temp Pulse Resp BP Pulse Ox 98.1 F 74 18 208/80 99 01/18/17 15:50 01/18/17 15:50 01/18/17 15:50 01/18/17 15:50 01/18/17 15:50 General appearance: no acute distress HEENT: Positive: PERRL Neck: Positive: neck supple Cardiac: Positive: Reg Rate and Rhythm, Systolic Murmur Lungs: Positive: Normal Exam Abdomen: Positive: Soft Extremities: Absent: edema Results 01/19/17 09:08 01/19/17 09:08 Lipids 01/19/17 Range/Units 15:54 Triglycerides 102 (2-149) mg/dL Cholesterol 165 (50-199) mg/dL HDL Cholesterol 33 L (40-59) mg/dL Cholesterol/HDL Ratio 5.00 % - EKG Interpretation EKG: sinus rhythm Assessment and Plan Assessment: Recurrent episodes of syncope Abnormal ECG RBBB, inferior Q waves consistent with old [place] History of [place] and stroke 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
[2017-01-20 17:35] LABS: Bilirubin,Urine NEG (Negative); Blood,Urine MOD (Negative); Ketones,Urine TR mg/dL (Negative); Leukocyte Esterase,Urine MOD (Negative); Nitrite,Urine NEG (Negative); Protein,Urine <15 mg/dL mg/dL (Negative); Urobilinogen,Urine < 2.0 mg/dL (<2.0)
--- NOTE | 2017-01-21 08:31 | Discharge Summary ---
Providers - Providers Date of Admission: 01/18/17 19:43 Date of discharge: 01/21/17 Attending physician: JOSE RUELAS 01/19/17 15:29 Consult to Physician [CONS] Routine Consulting Provider: GAUDENCIO PUGA Reason For Exam: recurrent syncope Place consult to:: DR. PUGA Notified:: NIC Phone number called:: IN HOUSE Was contact made?: Yes If yes, spoke with:: NIC Vega Time called:: 16:04 Comment:: ROSY NOTIFIED 01/20/17 14:22 Physical Therapy Evaluation and Treat [CONS] Routine Comment: Reason For Exam: gait traning and functional mobility Primary care physician: AZALIA HOBBS Hospitalization Condition: Good Hospital course: 86-year-old woman with past medical history of diabetes who presents after she was found on the floor by a neighbor. She denies any chest pain prior to it, she denies any prodrome or any symptoms prior to passing out. Of note she actually had multiple syncopal episodes recently, her family had brought her life alert which she refuses to use, She lives with her who is 95 years old, and he did not have any help in the house. 1. Syncope Concern for cardiac etiology given the presentation. placed her on telemetry, monitor troponin, 2D echocardiogram showed normal EF. Noted Cardiology recommendation. Will do PT eval before discharge to assess functional mobility and gait training. 2. S/P fall with facial injury CT of the head does not show any intracranial bleed or intracranial injury. Treatment with pain medications 3. Nausea this is most likely due to concussion, treated with antiemetics 4. Diabetes Continue insulins, ADA diet Disposition: DC/TX HOME UNDER HOME HEALTH Time spent for discharge: 35 minutes Core Measure Documentation - Palliative Care Palliative Care/ Comfort Measures: Not Applicable - Core Measures Any of the following diagnoses?: none Exam - Physical Exam Narrative exam: GENERAL: elderly WF lying on bed appeared to be in no discomfort. HEENT: Normocephalic. Atraumatic. No conjunctival congestion or icterus. Patient has moist mucous membranes. NECK: Supple. Trachea midline. CHEST/LUNGS: Clear to auscultated bilaterally, breathing nonlabored. No wheezes crackles or rhonchi. HEART/CARDIOVASCULAR: Regular in rate and rhythm. S1 and S2 positive. ABDOMEN: Abdomen is soft, nontender. Patient has normal bowel sounds. SKIN: There is no rash. Warm and dry. NEURO: No focal motor deficit. Follows command. MUSCULOSKELETAL: No joint effusion or tenderness. EXTRIMITY: No edema, no cyanosis or clubbing. PSYCH: Cooperative. - Constitutional Vitals: Temp Pulse Resp BP Pulse Ox 98.2 F 75 16 184/77 96 01/21/17 07:36 01/21/17 07:36 01/21/17 07:36 01/21/17 07:36 01/21/17 07:36 Plan Activity: fall precautions Weight Bearing Status: Non-Weight Bearing Diet: low cholesterol, low salt, diabetic Durable Medical Equipment Needed Upon Discharge: Walker-Rolling Follow up with: PRIMARY CARE, [Referring] - 3-5 Days Prescriptions: Ondansetron [Zofran Odt] 4 mg PO Q8HR #12 tab.preeti
[2017-01-21] MEDS: NOVOLOG SUB-Q SCH ×4 (08:53→23:45)
[2017-01-21] MEDS: APRESOLINE IV PRN ×2 (09:05→15:56)
[2017-01-21 10:28] LABS: Hematocrit 32.8 % (30.3-42.9); Hemoglobin 10.3 gm/dl (10.1-14.3); Mean Corpuscular HGB Conc 32 % (30-34); Mean Corpuscular Hemoglobin 27 pg (28-32); Mean Corpuscular Volume 86 fl (79-97); Platelet Count 281 K/mm3 (140-440); Red Cell Distribution Width 16.2 % (13.2-15.2); White Blood Count 14.9 K/mm3 (4.5-11.0)
--- NOTE | 2017-01-21 12:37 | Progress Note ---
Assessment and Plan Recurrent episodes of syncope Abnormal ECG RBBB, inferior Q waves consistent with old [place] History of [place] and stroke Cerebral atrophy on CT head Leukocytosis Alzheimer dementia Echo - LVEF 55%, inferior wall hypokinesis Recommendations: Conservative cardiac management. Subjective Date of service: 01/21/17 Interval history: Patient complains of nausea. She denies abdominal pain. Noted elevated blood pressure. Objective Vital Signs Temp Pulse Resp BP BP Pulse Ox 01/21/17 09:05 187/77 01/21/17 07:36 98.2 F 75 16 184/77 96 01/20/17 22:54 20 01/20/17 22:00 98.2 F 88 18 138/65 96 01/20/17 16:34 98.8 F 75 20 144/67 97 - Physical Examination General: No Apparent Distress HEENT: Positive: PERRL Neck: Positive: neck supple Cardiac: Positive: Reg Rate and Rhythm Lungs: Positive: Decreased Breath Sounds Extremities: Absent: edema - Labs and Meds CBC 01/21/17 Range/Units 09:49 WBC 14.9 H (4.5-11.0) K/mm3 RBC 3.80 (3.65-5.03) M/mm3 Hgb 10.3 (10.1-14.3) gm/dl Hct 32.8 (30.3-42.9) % Plt Count 281 (140-440) K/mm3
[2017-01-21] MEDS: NACL 0.9% 1000 ML 1,000 ML IV SCH (16:00)
[2017-01-21] MEDS ORDERED: NON-FORMULARY (Lisinopril 20 MG) PO SCH (16:00)
[2017-01-21] MEDS: ANTIVERT PO PRN (16:03)
[2017-01-21] MEDS: ZESTRIL PO SCH (19:02)
--- NOTE | 2017-01-21 19:05 | Progress Note ---
Assessment and Plan Assessment and plan: 86-year-old woman with past medical history of diabetes who presents after she was found on the floor by a neighbor. She denies any chest pain prior to it, she denies any prodrome or any symptoms prior to passing out. Of note she actually had multiple syncopal episodes recently, her family had brought her life alert which she refuses to use, She lives with her who is 95 years old, and he did not have any help in the house. 1. Syncope Concern for cardiac etiology given the presentation. placed her on telemetry, monitor troponin, 2D echocardiogram showed normal EF. Noted Cardiology recommendation. Has h/o dizziness, she is on 2. S/P fall with facial injury CT of the head does not show any intracranial bleed or intracranial injury. 3. Nausea this is most likely due to concussion, treated with antiemetics 4. Diabetes Continue insulins, ADA diet 5. Physical debility - PT recommended RENETTA, CM notified 6. Hypertension place on lisinopril, and monitor BP 7. UTI, start on levaquin History Interval history: Patient seen and examined. Medical records and medication list reviewed. No acute event overnight noted by the RN. Had PT eval today, c/o dizziness Discussed plan of care at bedside with patient and her family. Hospitalist Physical - Physical exam Narrative exam: GENERAL: elderly WF lying on bed appeared to be in no discomfort. HEENT: Normocephalic. Atraumatic. No conjunctival congestion or icterus. Patient has moist mucous membranes. NECK: Supple. Trachea midline. CHEST/LUNGS: Clear to auscultated bilaterally, breathing nonlabored. No wheezes crackles or rhonchi. HEART/CARDIOVASCULAR: Regular in rate and rhythm. S1 and S2 positive. ABDOMEN: Abdomen is soft, nontender. Patient has normal bowel sounds. SKIN: There is no rash. Warm and dry. NEURO: No focal motor deficit. Follows command. MUSCULOSKELETAL: No joint effusion or tenderness. EXTRIMITY: No edema, no cyanosis or clubbing. PSYCH: Cooperative. - Constitutional Vitals: Temp Pulse Resp BP Pulse Ox 98.6 F 87 16 172/77 97 01/21/17 15:20 01/21/17 19:02 01/21/17 15:20 01/21/17 19:02 01/21/17 15:20 General appearance: Present: no acute distress, well-nourished, other ( Laceration to forehead rt and nose and rt cheek.Deep laceration on Rt forehead) Results - Labs CBC & Chem 7: 01/21/17 09:49 01/19/17 09:08 Labs: Laboratory Last Values WBC 14.9 K/mm3 (4.5-11.0) H 01/21/17 09:49 RBC 3.80 M/mm3 (3.65-5.03) 01/21/17 09:49 Hgb 10.3 gm/dl (10.1-14.3) 01/21/17 09:49 Hct 32.8 % (30.3-42.9) 01/21/17 09:49 MCV 86 fl (79-97) 01/21/17 09:49 MCH 27 pg (28-32) L 01/21/17 09:49 MCHC 32 % (30-34) 01/21/17 09:49 RDW 16.2 % (13.2-15.2) H 01/21/17 09:49 Plt Count 281 K/mm3 (140-440) 01/21/17 09:49 Lymph % (Auto) 13.0 % (13.4-35.0) L 01/19/17 09:08 [place] % (Auto) 7.4 % (0.0-7.3) H 01/19/17 09:08 Eos % (Auto) 0.0 % (0.0-4.3) 01/19/17 09:08 Baso % (Auto) 0.1 % (0.0-1.8) 01/19/17 09:08 Lymph # 1.8 K/mm3 (1.2-5.4) 01/19/17 09:08 [place] # 1.0 K/mm3 (0.0-0.8) H 01/19/17 09:08 Eos # 0.0 K/mm3 (0.0-0.4) 01/19/17 09:08 Baso # 0.0 K/mm3 (0.0-0.1) 01/19/17 09:08 Add Manual Diff Complete 01/18/17 19:46 Total Counted 100 01/18/17 19:46 Seg Neutrophils % 79.5 % (40.0-70.0) H 01/19/17 09:08 Seg Neuts % (Manual) 82.0 % (40.0-70.0) H 01/18/17 19:46 Band Neutrophils % 8.0 % 01/18/17 19:46 Lymphocytes % (Manual) 6.0 % (13.4-35.0) L 01/18/17 19:46 Reactive Lymphs % (Man) 0 % 01/18/17 19:46 Monocytes % (Manual) 3.0 % (0.0-7.3) 01/18/17 19:46 Eosinophils % (Manual) 0 % (0.0-4.3) 01/18/17 19:46 Basophils % (Manual) 1.0 % (0.0-1.8) 01/18/17 19:46 Metamyelocytes % 0 % 01/18/17 19:46 Myelocytes % 0 % 01/18/17 19:46 Promyelocytes % 0 % 01/18/17 19:46 Blast Cells % 0 % 01/18/17 19:46 Nucleated RBC % Not Reportable 01/18/17 19:46 Seg Neutrophils # 11.2 K/mm3 (1.8-7.7) H 01/19/17 09:08 Seg Neutrophils # Man 15.3 K/mm3 (1.8-7.7) H 01/18/17 19:46 Band Neutrophils # 1.5 K/mm3 01/18/17 19:46 Lymphocytes # (Manual) 1.1 K/mm3 (1.2-5.4) L 01/18/17 19:46 Abs React Lymphs (Man) 0.0 K/mm3 01/18/17 19:46 Monocytes # (Manual) 0.6 K/mm3 (0.0-0.8) 01/18/17 19:46 Eosinophils # (Manual) 0.0 K/mm3 (0.0-0.4) 01/18/17 19:46 Basophils # (Manual) 0.2 K/mm3 (0.0-0.1) H 01/18/17 19:46 Metamyelocytes # 0.0 K/mm3 01/18/17 19:46 Myelocytes # 0.0 K/mm3 01/18/17 19:46 Promyelocytes # 0.0 K/mm3 01/18/17 19:46 Blast Cells # 0.0 K/mm3 01/18/17 19:46 WBC Morphology Not Reportable 01/18/17 19:46 Hypersegmented Neuts Not Reportable 01/18/17 19:46 Hyposegmented Neuts Not Reportable 01/18/17 19:46 Hypogranular Neuts Not Reportable 01/18/17 19:46 Smudge Cells Not Reportable 01/18/17 19:46 Toxic Granulation Not Reportable 01/18/17 19:46 Toxic Vacuolation Not Reportable 01/18/17 19:46 Dohle Bodies Not Reportable 01/18/17 19:46 Pelger-Huet Anomaly Not Reportable 01/18/17 19:46 Vicente Rods Not Reportable 01/18/17 19:46 Platelet Estimate Appears normal 01/18/17 19:46 Clumped Platelets Not Reportable 01/18/17 19:46 Plt Clumps, EDTA Not Reportable 01/18/17 19:46 Large Platelets Not Reportable 01/18/17 19:46 Giant Platelets Not Reportable 01/18/17 19:46 Platelet Satelliting Not Reportable 01/18/17 19:46 Plt Morphology Comment Not Reportable 01/18/17 19:46 RBC Morphology Not Reportable 01/18/17 19:46 Dimorphic RBCs Not Reportable 01/18/17 19:46 Polychromasia Not Reportable 01/18/17 19:46 Hypochromasia Not Reportable 01/18/17 19:46 Poikilocytosis Not Reportable 01/18/17 19:46 Anisocytosis 1+ 01/18/17 19:46 Microcytosis Not Reportable 01/18/17 19:46 Macrocytosis Not Reportable 01/18/17 19:46 Spherocytes Not Reportable 01/18/17 19:46 Pappenheimer Bodies Not Reportable 01/18/17 19:46 Sickle Cells Not Reportable 01/18/17 19:46 Target Cells Not Reportable 01/18/17 19:46 Tear Drop Cells Not Reportable 01/18/17 19:46 Ovalocytes 1+ 01/18/17 19:46 Helmet Cells Not Reportable 01/18/17 19:46 [place] Bodies Not Reportable 01/18/17 19:46 [place] Rings Not Reportable 01/18/17 19:46 Kami Cells Not Reportable 01/18/17 19:46 Bite Cells Not Reportable 01/18/17 19:46 Crenated Cell Not Reportable 01/18/17 19:46 Elliptocytes Not Reportable 01/18/17 19:46 Acanthocytes (Spur) Not Reportable 01/18/17 19:46 Rouleaux Not Reportable 01/18/17 19:46 Hemoglobin C Crystals Not Reportable 01/18/17 19:46 Schistocytes Not Reportable 01/18/17 19:46 Malaria parasites Not Reportable 01/18/17 19:46 Thor Bodies Not Reportable 01/18/17 19:46 Hem Pathologist Commnt No 01/18/17 19:46 PT 12.7 Sec. (12.2-14.9) 01/18/17 19:46 INR 0.96 (0.87-1.13) 01/18/17 19:46 APTT < 20.0 Sec. (24.2-36.6) L 01/18/17 19:46 Sodium 136 mmol/L (137-145) L 01/19/17 09:08 Potassium 4.3 mmol/L (3.6-5.0) 01/19/17 09:08 Chloride 98.2 mmol/L (98-107) 01/19/17 09:08 Carbon Dioxide 25 mmol/L (22-30) 01/19/17 09:08 Anion Gap 17 mmol/L 01/19/17 09:08 BUN 16 mg/dL (7-17) 01/19/17 09:08 Creatinine 0.8 mg/dL (0.7-1.2) 01/19/17 09:08 Estimated GFR > 60 ml/min 01/19/17 09:08 BUN/Creatinine Ratio 20.00 % 01/19/17 09:08 Glucose 155 mg/dL (65-100) H 01/19/17 09:08 POC Glucose 172 (70-105) H 01/21/17 16:33 Hemoglobin A1c 6.5 % (4-6) H 01/20/17 06:35 Calcium 8.5 mg/dL (8.4-10.2) 01/19/17 09:08 Total Bilirubin 0.2 mg/dL (0.1-1.2) 01/18/17 19:46 AST 20 units/L (5-40) 01/18/17 19:46 ALT 12 units/L (7-56) 01/18/17 19:46 Alkaline Phosphatase 70 units/L (35-129) 01/18/17 19:46 Troponin T 0.030 ng/mL (0.00-0.029) H 01/19/17 15:54 Total Protein 7.8 g/dL (6.3-8.2) 01/18/17 19:46 Albumin 4.0 g/dL (3.9-5) 01/18/17 19:46 Albumin/Globulin Ratio 1.1 % 01/18/17 19:46 Triglycerides 102 mg/dL (2-149) 01/19/17 15:54 Cholesterol 165 mg/dL (50-199) 01/19/17 15:54 LDL Cholesterol Direct 112 mg/dL (50-130) 01/19/17 15:54 HDL Cholesterol 33 mg/dL (40-59) L 01/19/17 15:54 Cholesterol/HDL Ratio 5.00 % 01/19/17 15:54 Urine Color Yellow (Yellow) 01/20/17 16:45 Urine Turbidity Cloudy (Clear) 01/20/17 16:45 Urine pH 5.0 (5.0-7.0) 01/20/17 16:45 Ur Specific [place] 1.019 (1.003-1.030) 01/20/17 16:45 Urine Protein <15 mg/dl mg/dL (Negative) 01/20/17 16:45 Urine Glucose (UA) Neg mg/dL (Negative) 01/20/17 16:45 Urine Ketones Tr mg/dL (Negative) 01/20/17 16:45 Urine Blood Mod (Negative) 01/20/17 16:45 Urine Nitrite Neg (Negative) 01/20/17 16:45 Urine Bilirubin Neg (Negative) 01/20/17 16:45 Urine Urobilinogen < 2.0 mg/dL (<2.0) 01/20/17 16:45 Ur Leukocyte Esterase Mod (Negative) 01/20/17 16:45 Urine WBC (Auto) 50.0 /HPF (0.0-6.0) H 01/20/17 16:45 Urine RBC (Auto) 11.0 /HPF (0.0-6.0) 01/20/17 16:45 U Epithel Cells (Auto) 1.0 /HPF (0-13.0) 01/20/17 16:45 Amorphous Crystals Few 01/20/17 16:45
[2017-01-21] MEDS: LEVAQUIN 750MG/150ML 750 MG/150 ML BAG IV SCH (20:33)
[2017-01-21] MEDS: LOVENOX SUB-Q SCH (21:32)
[2017-01-21] MEDS: ZOFRAN IV PRN (23:49)
[2017-01-21] MEDS: MORPHINE IV PRN (23:51)
[2017-01-22] MEDS: NOVOLOG SUB-Q SCH ×4 (07:55→22:16)
[2017-01-22] MEDS ORDERED: APRESOLINE IV ONE (08:10)
--- NOTE | 2017-01-22 08:46 | Progress Note ---
Assessment and Plan Recurrent episodes of syncope Abnormal ECG RBBB, inferior Q waves consistent with old [place] History of [place] and stroke Cerebral atrophy on CT head Leukocytosis Alzheimer dementia Echo - LVEF 55%, inferior wall hypokinesis Subjective Date of service: 01/22/17 Interval history: Patient complains of right sided chest pain. Worse with right arm movement and palpation. BP not optimal, currently 187/89. Objective Vital Signs Temp Pulse Pulse Resp BP BP Pulse Ox 01/22/17 07:35 98.1 F 80 16 187/79 97 01/21/17 23:51 20 01/21/17 23:00 98.7 F 87 20 175/69 94 01/21/17 22:00 78 20 01/21/17 19:02 87 172/77 01/21/17 15:56 168/73 01/21/17 15:20 98.6 F 82 16 168/73 97 01/21/17 09:05 187/77 - Physical Examination General: No Apparent Distress HEENT: Positive: PERRL Cardiac: Positive: Reg Rate and Rhythm Lungs: Positive: Decreased Breath Sounds - Labs and Meds CBC 01/21/17 Range/Units 09:49 WBC 14.9 H (4.5-11.0) K/mm3 RBC 3.80 (3.65-5.03) M/mm3 Hgb 10.3 (10.1-14.3) gm/dl Hct 32.8 (30.3-42.9) % Plt Count 281 (140-440) K/mm3
[2017-01-22] MEDS: LEVAQUIN 750MG/150ML 750 MG/150 ML BAG IV SCH (09:42)
[2017-01-22 09:52] LABS: Creatine Kinase MB 2.2 ng/mL (0.0-4.0)
[2017-01-22] MEDS: REGLAN IV PRN ×2 (11:26→17:32)
[2017-01-22] MEDS: ZESTRIL PO SCH (12:24)
--- NOTE | 2017-01-22 14:36 | Ultrasound Report ---
Complete abdominal ultrasound: The exam is technically compromised by the patient's excessive gas and habitus. The gallbladder has been removed. Images of the liver although compromise showed no focal abnormality. There may however be increased attenuation with poor definition of the posterior margin. The body of the pancreas may be identified and is grossly normal limits. The spleen is unremarkable. The CBD diameter is 5.7 mm. A right renal length is 10 cm and the left is 10.4 cm. The left kidney is better visualized than the right kidney. No obvious renal mass identified. No hydronephrosis. The aorta is not visualized. Impression: Severely compromised exam for evaluation of the liver, pancreas, right kidney. Questionable steatosis.
--- NOTE | 2017-01-22 15:10 | Progress Note ---
Assessment and Plan Assessment and plan: 86-year-old woman with past medical history of diabetes who presents after she was found on the floor by a neighbor. She denies any chest pain prior to it, she denies any prodrome or any symptoms prior to passing out. Of note she actually had multiple syncopal episodes recently, her family had brought her life alert which she refuses to use, She lives with her who is 95 years old, and he did not have any help in the house. 1. Syncope with dizziness Concern for cardiac etiology given the presentation. 2D echocardiogram showed normal EF. Placed on meclizine PT recommended 24/7 monitoring ordered MRI for possible CVA Does not have any confusion or seizure like activity 2. S/P fall with facial injury CT of the head does not show any intracranial bleed or intracranial injury. 3. Nausea this is most likely due to concussion, treated with antiemetics 4. Diabetes Continue insulins, ADA diet 5. Physical debility - PT recommended RENETTA, CM notified 6. Hypertension placed on lisinopril, and monitor BP 7. UTI without sepsis, started on levaquin 8. Elevated troponine Noted Cardiology recommendation. troponin slightly elevated placed on aspirin, lipitor cont to monitor will place on therapeutic dose of lovenox if MRI negative 9. epigastric pain, follow RUQ US History Interval history: Patient seen and examined. Medical records and medication list reviewed. No acute event overnight noted by the RN. continue to c/o dizziness, c/o RUQ pain today, elevated troponin Discussed plan of care at bedside with patient and her family. Hospitalist Physical - Physical exam Narrative exam: GENERAL: elderly WF lying on bed appeared to be in no discomfort. HEENT: Normocephalic. Atraumatic. No conjunctival congestion or icterus. Patient has moist mucous membranes. NECK: Supple. Trachea midline. CHEST/LUNGS: Clear to auscultated bilaterally, breathing nonlabored. No wheezes crackles or rhonchi. HEART/CARDIOVASCULAR: Regular in rate and rhythm. S1 and S2 positive. ABDOMEN: Abdomen is soft, nontender. Patient has normal bowel sounds. SKIN: There is no rash. Warm and dry. NEURO: No focal motor deficit. Follows command. MUSCULOSKELETAL: No joint effusion or tenderness. EXTRIMITY: No edema, no cyanosis or clubbing. PSYCH: Cooperative. - Constitutional Vitals: Temp Pulse Resp BP Pulse Ox 98.1 F 87 16 145/65 97 01/22/17 07:35 01/22/17 10:00 01/22/17 07:35 01/22/17 10:00 01/22/17 07:35 General appearance: Present: no acute distress, well-nourished, other ( Laceration to forehead rt and nose and rt cheek.Deep laceration on Rt forehead) Results - Labs CBC & Chem 7: 01/21/17 09:49 01/19/17 09:08 Labs: Laboratory Last Values WBC 14.9 K/mm3 (4.5-11.0) H 01/21/17 09:49 RBC 3.80 M/mm3 (3.65-5.03) 01/21/17 09:49 Hgb 10.3 gm/dl (10.1-14.3) 01/21/17 09:49 Hct 32.8 % (30.3-42.9) 01/21/17 09:49 MCV 86 fl (79-97) 01/21/17 09:49 MCH 27 pg (28-32) L 01/21/17 09:49 MCHC 32 % (30-34) 01/21/17 09:49 RDW 16.2 % (13.2-15.2) H 01/21/17 09:49 Plt Count 281 K/mm3 (140-440) 01/21/17 09:49 Lymph % (Auto) 13.0 % (13.4-35.0) L 01/19/17 09:08 [place] % (Auto) 7.4 % (0.0-7.3) H 01/19/17 09:08 Eos % (Auto) 0.0 % (0.0-4.3) 01/19/17 09:08 Baso % (Auto) 0.1 % (0.0-1.8) 01/19/17 09:08 Lymph # 1.8 K/mm3 (1.2-5.4) 01/19/17 09:08 [place] # 1.0 K/mm3 (0.0-0.8) H 01/19/17 09:08 Eos # 0.0 K/mm3 (0.0-0.4) 01/19/17 09:08 Baso # 0.0 K/mm3 (0.0-0.1) 01/19/17 09:08 Add Manual Diff Complete 01/18/17 19:46 Total Counted 100 01/18/17 19:46 Seg Neutrophils % 79.5 % (40.0-70.0) H 01/19/17 09:08 Seg Neuts % (Manual) 82.0 % (40.0-70.0) H 01/18/17 19:46 Band Neutrophils % 8.0 % 01/18/17 19:46 Lymphocytes % (Manual) 6.0 % (13.4-35.0) L 01/18/17 19:46 Reactive Lymphs % (Man) 0 % 01/18/17 19:46 Monocytes % (Manual) 3.0 % (0.0-7.3) 01/18/17 19:46 Eosinophils % (Manual) 0 % (0.0-4.3) 01/18/17 19:46 Basophils % (Manual) 1.0 % (0.0-1.8) 01/18/17 19:46 Metamyelocytes % 0 % 01/18/17 19:46 Myelocytes % 0 % 01/18/17 19:46 Promyelocytes % 0 % 01/18/17 19:46 Blast Cells % 0 % 01/18/17 19:46 Nucleated RBC % Not Reportable 01/18/17 19:46 Seg Neutrophils # 11.2 K/mm3 (1.8-7.7) H 01/19/17 09:08 Seg Neutrophils # Man 15.3 K/mm3 (1.8-7.7) H 01/18/17 19:46 Band Neutrophils # 1.5 K/mm3 01/18/17 19:46 Lymphocytes # (Manual) 1.1 K/mm3 (1.2-5.4) L 01/18/17 19:46 Abs React Lymphs (Man) 0.0 K/mm3 01/18/17 19:46 Monocytes # (Manual) 0.6 K/mm3 (0.0-0.8) 01/18/17 19:46 Eosinophils # (Manual) 0.0 K/mm3 (0.0-0.4) 01/18/17 19:46 Basophils # (Manual) 0.2 K/mm3 (0.0-0.1) H 01/18/17 19:46 Metamyelocytes # 0.0 K/mm3 01/18/17 19:46 Myelocytes # 0.0 K/mm3 01/18/17 19:46 Promyelocytes # 0.0 K/mm3 01/18/17 19:46 Blast Cells # 0.0 K/mm3 01/18/17 19:46 WBC Morphology Not Reportable 01/18/17 19:46 Hypersegmented Neuts Not Reportable 01/18/17 19:46 Hyposegmented Neuts Not Reportable 01/18/17 19:46 Hypogranular Neuts Not Reportable 01/18/17 19:46 Smudge Cells Not Reportable 01/18/17 19:46 Toxic Granulation Not Reportable 01/18/17 19:46 Toxic Vacuolation Not Reportable 01/18/17 19:46 Dohle Bodies Not Reportable 01/18/17 19:46 Pelger-Huet Anomaly Not Reportable 01/18/17 19:46 Vicente Rods Not Reportable 01/18/17 19:46 Platelet Estimate Appears normal 01/18/17 19:46 Clumped Platelets Not Reportable 01/18/17 19:46 Plt Clumps, EDTA Not Reportable 01/18/17 19:46 Large Platelets Not Reportable 01/18/17 19:46 Giant Platelets Not Reportable 01/18/17 19:46 Platelet Satelliting Not Reportable 01/18/17 19:46 Plt Morphology Comment Not Reportable 01/18/17 19:46 RBC Morphology Not Reportable 01/18/17 19:46 Dimorphic RBCs Not Reportable 01/18/17 19:46 Polychromasia Not Reportable 01/18/17 19:46 Hypochromasia Not Reportable 01/18/17 19:46 Poikilocytosis Not Reportable 01/18/17 19:46 Anisocytosis 1+ 01/18/17 19:46 Microcytosis Not Reportable 01/18/17 19:46 Macrocytosis Not Reportable 01/18/17 19:46 Spherocytes Not Reportable 01/18/17 19:46 Pappenheimer Bodies Not Reportable 01/18/17 19:46 Sickle Cells Not Reportable 01/18/17 19:46 Target Cells Not Reportable 01/18/17 19:46 Tear Drop Cells Not Reportable 01/18/17 19:46 Ovalocytes 1+ 01/18/17 19:46 Helmet Cells Not Reportable 01/18/17 19:46 [place] Bodies Not Reportable 01/18/17 19:46 [place] Rings Not Reportable 01/18/17 19:46 [place] Cells Not Reportable 01/18/17 19:46 Bite Cells Not Reportable 01/18/17 19:46 Crenated Cell Not Reportable 01/18/17 19:46 Elliptocytes Not Reportable 01/18/17 19:46 Acanthocytes (Spur) Not Reportable 01/18/17 19:46 Rouleaux Not Reportable 01/18/17 19:46 Hemoglobin C Crystals Not Reportable 01/18/17 19:46 Schistocytes Not Reportable 01/18/17 19:46 Malaria parasites Not Reportable 01/18/17 19:46 Thor Bodies Not Reportable 01/18/17 19:46 Hem Pathologist Commnt No 01/18/17 19:46 PT 12.7 Sec. (12.2-14.9) 01/18/17 19:46 INR 0.96 (0.87-1.13) 01/18/17 19:46 APTT < 20.0 Sec. (24.2-36.6) L 01/18/17 19:46 Sodium 136 mmol/L (137-145) L 01/19/17 09:08 Potassium 4.3 mmol/L (3.6-5.0) 01/19/17 09:08 Chloride 98.2 mmol/L (98-107) 01/19/17 09:08 Carbon Dioxide 25 mmol/L (22-30) 01/19/17 09:08 Anion Gap 17 mmol/L 01/19/17 09:08 BUN 16 mg/dL (7-17) 01/19/17 09:08 Creatinine 0.8 mg/dL (0.7-1.2) 01/19/17 09:08 Estimated GFR > 60 ml/min 01/19/17 09:08 BUN/Creatinine Ratio 20.00 % 01/19/17 09:08 Glucose 155 mg/dL (65-100) H 01/19/17 09:08 POC Glucose 139 (70-105) H 01/22/17 05:42 Hemoglobin A1c 6.5 % (4-6) H 01/20/17 06:35 Calcium 8.5 mg/dL (8.4-10.2) 01/19/17 09:08 Total Bilirubin 0.2 mg/dL (0.1-1.2) 01/18/17 19:46 AST 20 units/L (5-40) 01/18/17 19:46 ALT 12 units/L (7-56) 01/18/17 19:46 Alkaline Phosphatase 70 units/L (35-129) 01/18/17 19:46 Total Creatine Kinase 58 units/L (30-135) 01/22/17 08:57 CK-MB (CK-2) 2.2 ng/mL (0.0-4.0) 01/22/17 08:57 CK-MB (CK-2) Rel Index 3.7 (0-4) 01/22/17 08:57 Troponin T 0.065 ng/mL (0.00-0.029) H D 01/22/17 08:57 Total Protein 7.8 g/dL (6.3-8.2) 01/18/17 19:46 Albumin 4.0 g/dL (3.9-5) 01/18/17 19:46 Albumin/Globulin Ratio 1.1 % 01/18/17 19:46 Triglycerides 102 mg/dL (2-149) 01/19/17 15:54 Cholesterol 165 mg/dL (50-199) 01/19/17 15:54 LDL Cholesterol Direct 112 mg/dL (50-130) 01/19/17 15:54 HDL Cholesterol 33 mg/dL (40-59) L 01/19/17 15:54 Cholesterol/HDL Ratio 5.00 % 01/19/17 15:54 Urine Color Yellow (Yellow) 01/20/17 16:45 Urine Turbidity Cloudy (Clear) 01/20/17 16:45 Urine pH 5.0 (5.0-7.0) 01/20/17 16:45 Ur Specific [place] 1.019 (1.003-1.030) 01/20/17 16:45 Urine Protein <15 mg/dl mg/dL (Negative) 01/20/17 16:45 Urine Glucose (UA) Neg mg/dL (Negative) 01/20/17 16:45 Urine Ketones Tr mg/dL (Negative) 01/20/17 16:45 Urine Blood Mod (Negative) 01/20/17 16:45 Urine Nitrite Neg (Negative) 01/20/17 16:45 Urine Bilirubin Neg (Negative) 01/20/17 16:45 Urine Urobilinogen < 2.0 mg/dL (<2.0) 01/20/17 16:45 Ur Leukocyte Esterase Mod (Negative) 01/20/17 16:45 Urine WBC (Auto) 50.0 /HPF (0.0-6.0) H 01/20/17 16:45 Urine RBC (Auto) 11.0 /HPF (0.0-6.0) 01/20/17 16:45 U Epithel Cells (Auto) 1.0 /HPF (0-13.0) 01/20/17 16:45 Amorphous Crystals Few 01/20/17 16:45
--- NOTE | 2017-01-22 17:59 | Magnetic Resonance Report ---
FINAL REPORT PROCEDURE: MR BRAIN WO CON TECHNIQUE: Magnetic resonance imaging of the brain was performed without contrast material. HISTORY: dizziness COMPARISON: 01/18/17 CT head FINDINGS: Skull base and calvarium: Normal. Paranasal sinuses: The visualized paranasal sinuses are clear. Cerebellum: No evidence of acute bleed or acute ischemia. Densely calcified mass in the left posterior cerebellum measuring 1.5 x 1.0 centimeters suggesting probable meningioma likely arising from the left posterior tentorium Brainstem: No evidence of hemorrhage, ischemia or mass. Cerebrum: No evidence of acute bleed or acute ischemia. No definitive mass seen. Ventricles: Normal in size and morphology for the patient's age. Pituitary gland and sella: Normal. Globes and orbits: Normal. Vasculature: Normal arterial and venous flow voids. Calcified atherosclerotic disease of the vertebral arteries. Slight dominant left vertebral artery. Heavily calcified atherosclerosis intracranial internal carotid arteries about the clinoid region and proximal left M1 MCA Other: No bright T2 signal on diffusion-weighted sequence seen to suggest acute ischemia. No diffusion restriction is identified. Scattered T2 signal on FLAIR sequencing periventricular locations and deep white matter subcortical areas and minimally right cerebellum consistent with chronic microischemic change and lacunar disease. Moderate to severe diffuse atrophy. IMPRESSION: No acute intracranial pathology suspected at this time
[2017-01-22] MEDS: ECOTRIN PO SCH (19:09)
[2017-01-22] MEDS: LOVENOX SUB-Q SCH (22:08)
[2017-01-23 05:44] LABS: Basophils % (Auto) 0.3 % (0.0-1.8); Eosinophils % (Auto) 1.1 % (0.0-4.3); Hematocrit 31.6 % (30.3-42.9); Hemoglobin 9.9 gm/dl (10.1-14.3); Mean Corpuscular HGB Conc 32 % (30-34); Mean Corpuscular Hemoglobin 27 pg (28-32); Mean Corpuscular Volume 86 fl (79-97); Platelet Count 293 K/mm3 (140-440); Red Blood Count 3.66 M/mm3 (3.65-5.03); Red Cell Distribution Width 16.5 % (13.2-15.2); White Blood Count 12.2 K/mm3 (4.5-11.0)
[2017-01-23 05:59] LABS: Anion Gap 17 mmol/L; BUN/Creatinine Ratio 26.66; Blood Urea Nitrogen 16 mg/dL (7-17); Calcium 8.4 mg/dL (8.4-10.2); Carbon Dioxide 24 mmol/L (22-30); Glucose 135 mg/dL (65-100); Potassium 3.5 mmol/L (3.6-5.0); Sodium 138 mmol/L (137-145)
[2017-01-23] MEDS: NOVOLOG SUB-Q SCH ×4 (07:30→21:38)
--- NOTE | 2017-01-23 08:59 | Progress Note ---
Assessment and Plan Assessment: Recurrent episodes of syncope Abnormal ECG RBBB, inferior Q waves consistent with old [place] History of [place] and stroke Cerebral atrophy on CT head Anemia and leukocytosis Alzheimer dementia Echo - LVEF 55%, inferior wall hypokinesis Recommendations: Daughter elects conservative therapy No ischemic testing will therefore be ordered Start metoprolol Continue asa, lisinopril, lipitor No further cardiac work-up Subjective Date of service: 01/23/17 Principal diagnosis: Syncope Interval history: Patient reports feeling better this morning Her RUQ pain has improved Objective Vital Signs Temp Pulse Pulse Resp BP Pulse Ox 01/23/17 06:50 98.9 F 86 16 177/78 93 01/23/17 05:00 82 18 174/77 01/23/17 00:47 97.5 F L 107 H 20 167/67 98 01/22/17 15:57 98.2 F 94 H 14 141/78 99 01/22/17 10:00 87 145/65 - Physical Examination General: No Apparent Distress HEENT: Positive: PERRL Neck: Positive: neck supple Cardiac: Positive: Reg Rate and Rhythm Lungs: Positive: Normal Exam Abdomen: Positive: Soft Extremities: Absent: edema - Labs and Meds Cardiac Enzymes 01/22/17 Range/Units 08:57 CK-MB (CK-2) 2.2 (0.0-4.0) ng/mL CBC 01/23/17 Range/Units 05:15 WBC 12.2 H (4.5-11.0) K/mm3 RBC 3.66 (3.65-5.03) M/mm3 Hgb 9.9 L (10.1-14.3) gm/dl Hct 31.6 (30.3-42.9) % Plt Count 293 (140-440) K/mm3 Lymph # 2.3 (1.2-5.4) K/mm3 [place] # 1.4 H (0.0-0.8) K/mm3 Eos # 0.1 (0.0-0.4) K/mm3 Baso # 0.0 (0.0-0.1) K/mm3 Comprehensive Metabolic Panel 01/23/17 Range/Units 05:15 Sodium 138 (137-145) mmol/L Potassium 3.5 L (3.6-5.0) mmol/L Chloride 101.0 (98-107) mmol/L Carbon Dioxide 24 (22-30) mmol/L BUN 16 (7-17) mg/dL Creatinine 0.6 L (0.7-1.2) mg/dL Glucose 135 H (65-100) mg/dL Calcium 8.4 (8.4-10.2) mg/dL
[2017-01-23] MEDS ORDERED: TOPROL XL PO SCH (10:00)
[2017-01-23] MEDS: ECOTRIN PO SCH (10:06)
[2017-01-23] MEDS: ZESTRIL PO SCH (10:07)
[2017-01-23] MEDS: LEVAQUIN 750MG/150ML 750 MG/150 ML BAG IV SCH (10:07)
[2017-01-23] MEDS: TOPROL XL PO SCH (12:43)
--- NOTE | 2017-01-23 15:22 | Progress Note ---
Assessment and Plan Assessment and plan: 86-year-old woman with past medical history of diabetes who presents after she was found on the floor by a neighbor. She denies any chest pain prior to it, she denies any prodrome or any symptoms prior to passing out. Of note she actually had multiple syncopal episodes recently, her family had brought her life alert which she refuses to use, She lives with her who is 95 years old, and he did not have any help in the house. 1. Syncope with dizziness Concern for cardiac etiology given the presentation. 2D echocardiogram showed normal EF. Placed on meclizine PT recommended 24/7 monitoring ordered MRI for possible CVA, report normal Does not have any confusion or seizure like activity 2. S/P fall with facial injury CT/MRO of the head does not show any intracranial bleed or intracranial injury. 3. Nausea this is most likely due to concussion, treated with antiemetics 4. Diabetes Continue insulins, ADA diet 5. Physical debility - PT recommended RENETTA, CM notified 6. Hypertension placed on lisinopril, and monitor BP 7. UTI without sepsis, started on levaquin 8. Elevated troponine Noted Cardiology recommendation. troponin slightly elevated placed on aspirin, lipitor cont to monitor family does not want any further intervention 9. epigastric pain, resolved, RUQ US unremarkable History Interval history: Patient seen and examined. Medical records and medication list reviewed. No acute event overnight noted by the RN. states that she feels better today, denies to have any further cardiac workup Discussed plan of care at bedside with patient and her family. Hospitalist Physical - Physical exam Narrative exam: GENERAL: elderly WF lying on bed appeared to be in no discomfort. HEENT: Normocephalic. Atraumatic. No conjunctival congestion or icterus. Patient has moist mucous membranes. NECK: Supple. Trachea midline. CHEST/LUNGS: Clear to auscultated bilaterally, breathing nonlabored. No wheezes crackles or rhonchi. HEART/CARDIOVASCULAR: Regular in rate and rhythm. S1 and S2 positive. ABDOMEN: Abdomen is soft, nontender. Patient has normal bowel sounds. SKIN: There is no rash. Warm and dry. NEURO: No focal motor deficit. Follows command. MUSCULOSKELETAL: No joint effusion or tenderness. EXTRIMITY: No edema, no cyanosis or clubbing. PSYCH: Cooperative. - Constitutional Vitals: Temp Pulse Resp BP Pulse Ox 98.9 F 86 16 177/78 93 01/23/17 06:50 01/23/17 10:06 01/23/17 06:50 01/23/17 10:06 01/23/17 06:50 General appearance: Present: no acute distress, well-nourished, other ( Laceration to forehead rt and nose and rt cheek.Deep laceration on Rt forehead) Results - Labs CBC & Chem 7: 01/23/17 05:15 01/23/17 05:15 Labs: Laboratory Last Values WBC 12.2 K/mm3 (4.5-11.0) H 01/23/17 05:15 RBC 3.66 M/mm3 (3.65-5.03) 01/23/17 05:15 Hgb 9.9 gm/dl (10.1-14.3) L 01/23/17 05:15 Hct 31.6 % (30.3-42.9) 01/23/17 05:15 MCV 86 fl (79-97) 01/23/17 05:15 MCH 27 pg (28-32) L 01/23/17 05:15 MCHC 32 % (30-34) 01/23/17 05:15 RDW 16.5 % (13.2-15.2) H 01/23/17 05:15 Plt Count 293 K/mm3 (140-440) 01/23/17 05:15 Lymph % (Auto) 18.8 % (13.4-35.0) 01/23/17 05:15 [place] % (Auto) 11.4 % (0.0-7.3) H 01/23/17 05:15 Eos % (Auto) 1.1 % (0.0-4.3) 01/23/17 05:15 Baso % (Auto) 0.3 % (0.0-1.8) 01/23/17 05:15 Lymph # 2.3 K/mm3 (1.2-5.4) 01/23/17 05:15 [place] # 1.4 K/mm3 (0.0-0.8) H 01/23/17 05:15 Eos # 0.1 K/mm3 (0.0-0.4) 01/23/17 05:15 Baso # 0.0 K/mm3 (0.0-0.1) 01/23/17 05:15 Add Manual Diff Complete 01/18/17 19:46 Total Counted 100 01/18/17 19:46 Seg Neutrophils % 68.4 % (40.0-70.0) 01/23/17 05:15 Seg Neuts % (Manual) 82.0 % (40.0-70.0) H 01/18/17 19:46 Band Neutrophils % 8.0 % 01/18/17 19:46 Lymphocytes % (Manual) 6.0 % (13.4-35.0) L 01/18/17 19:46 Reactive Lymphs % (Man) 0 % 01/18/17 19:46 Monocytes % (Manual) 3.0 % (0.0-7.3) 01/18/17 19:46 Eosinophils % (Manual) 0 % (0.0-4.3) 01/18/17 19:46 Basophils % (Manual) 1.0 % (0.0-1.8) 01/18/17 19:46 Metamyelocytes % 0 % 01/18/17 19:46 Myelocytes % 0 % 01/18/17 19:46 Promyelocytes % 0 % 01/18/17 19:46 Blast Cells % 0 % 01/18/17 19:46 Nucleated RBC % Not Reportable 01/18/17 19:46 Seg Neutrophils # 8.3 K/mm3 (1.8-7.7) H 01/23/17 05:15 Seg Neutrophils # Man 15.3 K/mm3 (1.8-7.7) H 01/18/17 19:46 Band Neutrophils # 1.5 K/mm3 01/18/17 19:46 Lymphocytes # (Manual) 1.1 K/mm3 (1.2-5.4) L 01/18/17 19:46 Abs React Lymphs (Man) 0.0 K/mm3 01/18/17 19:46 Monocytes # (Manual) 0.6 K/mm3 (0.0-0.8) 01/18/17 19:46 Eosinophils # (Manual) 0.0 K/mm3 (0.0-0.4) 01/18/17 19:46 Basophils # (Manual) 0.2 K/mm3 (0.0-0.1) H 01/18/17 19:46 Metamyelocytes # 0.0 K/mm3 01/18/17 19:46 Myelocytes # 0.0 K/mm3 01/18/17 19:46 Promyelocytes # 0.0 K/mm3 01/18/17 19:46 Blast Cells # 0.0 K/mm3 01/18/17 19:46 WBC Morphology Not Reportable 01/18/17 19:46 Hypersegmented Neuts Not Reportable 01/18/17 19:46 Hyposegmented Neuts Not Reportable 01/18/17 19:46 Hypogranular Neuts Not Reportable 01/18/17 19:46 Smudge Cells Not Reportable 01/18/17 19:46 Toxic Granulation Not Reportable 01/18/17 19:46 Toxic Vacuolation Not Reportable 01/18/17 19:46 Dohle Bodies Not Reportable 01/18/17 19:46 Pelger-Huet Anomaly Not Reportable 01/18/17 19:46 Vicente Rods Not Reportable 01/18/17 19:46 Platelet Estimate Appears normal 01/18/17 19:46 Clumped Platelets Not Reportable 01/18/17 19:46 Plt Clumps, EDTA Not Reportable 01/18/17 19:46 Large Platelets Not Reportable 01/18/17 19:46 Giant Platelets Not Reportable 01/18/17 19:46 Platelet Satelliting Not Reportable 01/18/17 19:46 Plt Morphology Comment Not Reportable 01/18/17 19:46 RBC Morphology Not Reportable 01/18/17 19:46 Dimorphic RBCs Not Reportable 01/18/17 19:46 Polychromasia Not Reportable 01/18/17 19:46 Hypochromasia Not Reportable 01/18/17 19:46 Poikilocytosis Not Reportable 01/18/17 19:46 Anisocytosis 1+ 01/18/17 19:46 Microcytosis Not Reportable 01/18/17 19:46 Macrocytosis Not Reportable 01/18/17 19:46 Spherocytes Not Reportable 01/18/17 19:46 Pappenheimer Bodies Not Reportable 01/18/17 19:46 Sickle Cells Not Reportable 01/18/17 19:46 Target Cells Not Reportable 01/18/17 19:46 Tear Drop Cells Not Reportable 01/18/17 19:46 Ovalocytes 1+ 01/18/17 19:46 Helmet Cells Not Reportable 01/18/17 19:46 [place] Bodies Not Reportable 01/18/17 19:46 [place] Rings Not Reportable 01/18/17 19:46 [place] Cells Not Reportable 01/18/17 19:46 Bite Cells Not Reportable 01/18/17 19:46 Crenated Cell Not Reportable 01/18/17 19:46 Elliptocytes Not Reportable 01/18/17 19:46 Acanthocytes (Spur) Not Reportable 01/18/17 19:46 Rouleaux Not Reportable 01/18/17 19:46 Hemoglobin C Crystals Not Reportable 01/18/17 19:46 Schistocytes Not Reportable 01/18/17 19:46 Malaria parasites Not Reportable 01/18/17 19:46 Thor Bodies Not Reportable 01/18/17 19:46 Hem Pathologist Commnt No 01/18/17 19:46 PT 12.7 Sec. (12.2-14.9) 01/18/17 19:46 INR 0.96 (0.87-1.13) 01/18/17 19:46 APTT < 20.0 Sec. (24.2-36.6) L 01/18/17 19:46 Sodium 138 mmol/L (137-145) 01/23/17 05:15 Potassium 3.5 mmol/L (3.6-5.0) L 01/23/17 05:15 Chloride 101.0 mmol/L (98-107) 01/23/17 05:15 Carbon Dioxide 24 mmol/L (22-30) 01/23/17 05:15 Anion Gap 17 mmol/L 01/23/17 05:15 BUN 16 mg/dL (7-17) 01/23/17 05:15 Creatinine 0.6 mg/dL (0.7-1.2) L 01/23/17 05:15 Estimated GFR > 60 ml/min 01/23/17 05:15 BUN/Creatinine Ratio 26.66 % 01/23/17 05:15 Glucose 135 mg/dL (65-100) H 01/23/17 05:15 POC Glucose 164 (70-105) H 01/23/17 12:03 Hemoglobin A1c 6.5 % (4-6) H 01/20/17 06:35 Calcium 8.4 mg/dL (8.4-10.2) 01/23/17 05:15 Total Bilirubin 0.2 mg/dL (0.1-1.2) 01/18/17 19:46 AST 20 units/L (5-40) 01/18/17 19:46 ALT 12 units/L (7-56) 01/18/17 19:46 Alkaline Phosphatase 70 units/L (35-129) 01/18/17 19:46 Total Creatine Kinase 58 units/L (30-135) 01/22/17 08:57 CK-MB (CK-2) 2.2 ng/mL (0.0-4.0) 01/22/17 08:57 CK-MB (CK-2) Rel Index 3.7 (0-4) 01/22/17 08:57 Troponin T 0.063 ng/mL (0.00-0.029) H D 01/23/17 14:02 Total Protein 7.8 g/dL (6.3-8.2) 01/18/17 19:46 Albumin 4.0 g/dL (3.9-5) 01/18/17 19:46 Albumin/Globulin Ratio 1.1 % 01/18/17 19:46 Triglycerides 102 mg/dL (2-149) 01/19/17 15:54 Cholesterol 165 mg/dL (50-199) 01/19/17 15:54 LDL Cholesterol Direct 112 mg/dL (50-130) 01/19/17 15:54 HDL Cholesterol 33 mg/dL (40-59) L 01/19/17 15:54 Cholesterol/HDL Ratio 5.00 % 01/19/17 15:54 Urine Color Yellow (Yellow) 01/20/17 16:45 Urine Turbidity Cloudy (Clear) 01/20/17 16:45 Urine pH 5.0 (5.0-7.0) 01/20/17 16:45 Ur Specific [place] 1.019 (1.003-1.030) 01/20/17 16:45 Urine Protein <15 mg/dl mg/dL (Negative) 01/20/17 16:45 Urine Glucose (UA) Neg mg/dL (Negative) 01/20/17 16:45 Urine Ketones Tr mg/dL (Negative) 01/20/17 16:45 Urine Blood Mod (Negative) 01/20/17 16:45 Urine Nitrite Neg (Negative) 01/20/17 16:45 Urine Bilirubin Neg (Negative) 01/20/17 16:45 Urine Urobilinogen < 2.0 mg/dL (<2.0) 01/20/17 16:45 Ur Leukocyte Esterase Mod (Negative) 01/20/17 16:45 Urine WBC (Auto) 50.0 /HPF (0.0-6.0) H 01/20/17 16:45 Urine RBC (Auto) 11.0 /HPF (0.0-6.0) 01/20/17 16:45 U Epithel Cells (Auto) 1.0 /HPF (0-13.0) 01/20/17 16:45 Amorphous Crystals Few 01/20/17 16:45 - Imaging and Cardiology US - abdomen: report reviewed MRI - head: report reviewed
--- NOTE | 2017-01-23 17:25 | Progress Note ---
Subjective - Reason for Consult Consult date: 01/23/17 Reason for consult: anxiety - Chief Complaint Chief complaint: Ms. More is an 86 year old white female admitted to the medical floor after she fell and was unconscious for an unspecified amount of time. Patient recalls going to get her a Dr. Ramsey and states that the next thing she knew she woke up in the hospital. There is a concern it was a syncopal episode and potentially cardiac in nature. She has been evaluated for CVA as well. Her CT scan showed cerebral atrophy. The current complaints expressed by the family or that she is very anxious. Her daughter is present. Her daughter reports that during one of her medical tests she began hyperventilating. Patient reports that she worries all the time about her family and this keeps her from sleeping. She minimizes this concern though during the interview. She reports some depression but primarily anxiety. She denies suicidal or homicidal ideation. She denies auditory or visual hallucinations. Her daughter states that she is recently been diagnosed with dementia because she is having a difficult time with short-term memory but has retained her long-term memory. The primary care provider told the family this information. Mental Status Exam - Vital signs Last Vital Signs Temp 98.9 F 01/23/17 06:50 Pulse 86 01/23/17 10:06 Resp 16 01/23/17 06:50 BP 177/78 01/23/17 10:06 Pulse Ox 93 01/23/17 06:50 - Exam Narrative exam: No suicidal or homicidal ideation. No agitation. Poor sleep initiation reported She is alert and oriented to person and place and situation, not time She was unable to complete serial sevens or spelling world backward 3 word register: 3 out of 3 Recall: 0 out of 3 She was unable to follow a three-step command, follow 2 out of 3 She does not know the current president's name While her daughter was out of the room she called for her several times Affect: anxious Mood: congruent with affect Thought content: other (worries about the health of her family) Thought Process: Intact Perceptions: none Speech: normal rate and pattern Concentration: focused Motor activity: normal Level of consciousness: alert Memory: Remote Intact, Recent Impaired Sleep Symptoms: Insomnia Interaction: cooperative Assessment and Plan The patient clearly has anxiety. This is most likely a long-standing generalized anxiety disorder. Also consider depressive disorder. The abnormal test for memory may be related to dementia or chronic anxiety and depression and this may be complicated by the recent fall/concussion Her daughter also informed us that the patient's oldest daughter recently found out that she has 6 months to live. The family has withheld this information from the patient but at some point may tell her. Recommendation: Start Zoloft 25 mg daily for anxiety and depression. Discontinue Seroquel due to the risk of orthostatic hypotension and subsequent risk of fall. Consider alternative medication such as low-dose Haldol as needed for agitation - Patient Problems (1) Generalized anxiety disorder Current Visit: Yes Status: Acute (2) Depressive disorder Current Visit: Yes Status: Acute
[2017-01-23] MEDS: LOVENOX SUB-Q SCH (21:38)
[2017-01-24] MEDS: NOVOLOG SUB-Q SCH ×4 (07:30→22:15)
[2017-01-24] MEDS: ZOFRAN IV PRN (08:35)
--- NOTE | 2017-01-24 08:58 | Progress Note ---
Assessment and Plan Assessment: Recurrent episodes of syncope Abnormal ECG RBBB, inferior Q waves consistent with old IN History of IN and stroke Cerebral atrophy on CT head Anemia and leukocytosis Alzheimer dementia Echo - LVEF 55%, inferior wall hypokinesis Recommendations: Daughter elects conservative therapy No ischemic testing will therefore be ordered Continue current management Will sign off Please call back if needed Subjective Date of service: 01/24/17 Principal diagnosis: Syncope Interval history: No interval changes Patient is feeling better Patient is tolerating po intake Objective Vital Signs Temp Pulse Pulse Resp BP BP Pulse Ox 01/24/17 06:55 99 F 67 18 160/69 95 01/23/17 23:05 98.2 F 79 20 145/70 01/23/17 15:50 99 F 87 18 139/61 92 01/23/17 10:06 86 177/78 - Physical Examination General: No Apparent Distress HEENT: Positive: PERRL Neck: Positive: neck supple Cardiac: Positive: Reg Rate and Rhythm Lungs: Positive: Normal Exam Abdomen: Positive: Soft Extremities: Absent: edema
[2017-01-24] MEDS: ZESTRIL PO SCH (10:00)
[2017-01-24] MEDS: TOPROL XL PO SCH (10:00)
[2017-01-24] MEDS: ECOTRIN PO SCH (10:08)
[2017-01-24] MEDS: LEVAQUIN 750MG/150ML 750 MG/150 ML BAG IV SCH (10:09)
--- NOTE | 2017-01-24 13:40 | Progress Note ---
Subjective - Reason for Consult Consult date: 01/24/17 Reason for consult: psychiatric follow up - Chief Complaint Chief complaint: Ms. More is an 86 year old white female admitted to the medical floor after she fell and was unconscious for an unspecified amount of time. Patient recalls going to get her a Dr. Ramsey and states that the next thing she knew she woke up in the hospital. There is a concern it was a syncopal episode and potentially cardiac in nature. She has been evaluated for CVA as well. Her CT scan showed cerebral atrophy. The current complaints expressed by the family or that she is very anxious. Her daughter is present. She has recent diagnosis of dementia. Her daughter reports that during one of her medical tests she began hyperventilating. Patient reports that she worries all the time about her family and this keeps her from sleeping. She minimizes this concern though during the interview. She reports some depression but primarily anxiety. She denies suicidal or homicidal ideation. She denies auditory or visual hallucinations. Mental Status Exam - Vital signs Last Vital Signs Temp 99 F 01/24/17 06:55 Pulse 67 01/24/17 06:55 Resp 18 01/24/17 06:55 BP 160/69 01/24/17 06:55 Pulse Ox 95 01/24/17 06:55 - Exam Narrative exam: No suicidal or homicidal ideation. No agitation. She states she does not have dementia and that her daughters are fighting over her assets She is alert and oriented to person and place and situation, not time Affect: anxious Mood: congruent with affect Thought content: other (perseverative) Thought Process: Tangential Perceptions: none Speech: normal rate and pattern Concentration: distractible Motor activity: normal Level of consciousness: alert Memory: Intact Sleep Symptoms: Difficulty Falling Asleep Appetite: decreased Interaction: cooperative Assessment and Plan Impression unchanged: The patient clearly has anxiety. This is most likely a long-standing generalized anxiety disorder. Also consider depressive disorder. The abnormal test for memory may be related to dementia or chronic anxiety and depression and this may be complicated by the recent fall/concussion During initial consultation Her daughter also informed us that the patient's oldest daughter recently found out that she has 6 months to live. The family has withheld this information from the patient but at some point may tell her. Recommendation: Start Zoloft 25 mg daily for anxiety and depression. Discontinue Seroquel due to the risk of orthostatic hypotension and subsequent risk of fall. - Patient Problems (1) Generalized anxiety disorder Current Visit: Yes Status: Acute (2) Depressive disorder Current Visit: Yes Status: Acute
--- NOTE | 2017-01-24 15:43 | Progress Note ---
Assessment and Plan Assessment and plan: 86-year-old woman with past medical history of diabetes who presents after she was found on the floor by a neighbor. She denies any chest pain prior to it, she denies any prodrome or any symptoms prior to passing out. Of note she actually had multiple syncopal episodes recently, her family had brought her life alert which she refuses to use, She lives with her who is 95 years old, and he did not have any help in the house. CT/MRI head without any acute process. Troponine was elevated but family denies to get any further intervention. Placed on zoloft for anxiety by psych, now waiting for [facility] placement. 1. Syncope with dizziness Concern for cardiac etiology given the presentation. 2D echocardiogram showed normal EF. Placed on meclizine PT recommended 24/7 monitoring ordered MRI for possible CVA, report normal Does not have any confusion or seizure like activity 2. S/P fall with facial injury CT/MRI of the head does not show any intracranial bleed or intracranial injury. 3. Nausea this is most likely due to concussion, treated with antiemetics 4. Diabetes Continue insulins, ADA diet 5. Physical debility - PT recommended R[facility], CM notified 6. Hypertension placed on lisinopril, and monitor BP 7. UTI without sepsis, started on levaquin 8. Elevated troponine Noted Cardiology recommendation. troponin slightly elevated placed on aspirin, lipitor cont to monitor family does not want any further intervention 9. epigastric pain, resolved, RUQ US unremarkable 10. Anxiety, on zoloft History Interval history: Patient seen and examined. Medical records and medication list reviewed. No acute event overnight noted by the RN. states that she feels better today, wants to go home but could not get up from bed without assistance yet Discussed plan of care at bedside with patient and her family. Hospitalist Physical - Physical exam Narrative exam: GENERAL: elderly WF lying on bed appeared to be in no discomfort. HEENT: Normocephalic. Atraumatic. No conjunctival congestion or icterus. Patient has moist mucous membranes. NECK: Supple. Trachea midline. CHEST/LUNGS: Clear to auscultated bilaterally, breathing nonlabored. No wheezes crackles or rhonchi. HEART/CARDIOVASCULAR: Regular in rate and rhythm. S1 and S2 positive. ABDOMEN: Abdomen is soft, nontender. Patient has normal bowel sounds. SKIN: There is no rash. Warm and dry. NEURO: No focal motor deficit. Follows command. MUSCULOSKELETAL: No joint effusion or tenderness. EXTRIMITY: No edema, no cyanosis or clubbing. PSYCH: Cooperative. - Constitutional Vitals: Temp Pulse Resp BP Pulse Ox 99 F 67 18 160/69 95 01/24/17 06:55 01/24/17 06:55 01/24/17 06:55 01/24/17 06:55 01/24/17 06:55 General appearance: Present: no acute distress, well-nourished, other ( Laceration to forehead rt and nose and rt cheek.Deep laceration on Rt forehead) Results - Labs CBC & Chem 7: 01/23/17 05:15 01/23/17 05:15 Labs: Laboratory Last Values WBC 12.2 K/mm3 (4.5-11.0) H 01/23/17 05:15 RBC 3.66 M/mm3 (3.65-5.03) 01/23/17 05:15 Hgb 9.9 gm/dl (10.1-14.3) L 01/23/17 05:15 Hct 31.6 % (30.3-42.9) 01/23/17 05:15 MCV 86 fl (79-97) 01/23/17 05:15 MCH 27 pg (28-32) L 01/23/17 05:15 MCHC 32 % (30-34) 01/23/17 05:15 RDW 16.5 % (13.2-15.2) H 01/23/17 05:15 Plt Count 293 K/mm3 (140-440) 01/23/17 05:15 Lymph % (Auto) 18.8 % (13.4-35.0) 01/23/17 05:15 Chambers % (Auto) 11.4 % (0.0-7.3) H 01/23/17 05:15 Eos % (Auto) 1.1 % (0.0-4.3) 01/23/17 05:15 Baso % (Auto) 0.3 % (0.0-1.8) 01/23/17 05:15 Lymph # 2.3 K/mm3 (1.2-5.4) 01/23/17 05:15 Chambers # 1.4 K/mm3 (0.0-0.8) H 01/23/17 05:15 Eos # 0.1 K/mm3 (0.0-0.4) 01/23/17 05:15 Baso # 0.0 K/mm3 (0.0-0.1) 01/23/17 05:15 Add Manual Diff Complete 01/18/17 19:46 Total Counted 100 01/18/17 19:46 Seg Neutrophils % 68.4 % (40.0-70.0) 01/23/17 05:15 Seg Neuts % (Manual) 82.0 % (40.0-70.0) H 01/18/17 19:46 Band Neutrophils % 8.0 % 01/18/17 19:46 Lymphocytes % (Manual) 6.0 % (13.4-35.0) L 01/18/17 19:46 Reactive Lymphs % (Man) 0 % 01/18/17 19:46 Monocytes % (Manual) 3.0 % (0.0-7.3) 01/18/17 19:46 Eosinophils % (Manual) 0 % (0.0-4.3) 01/18/17 19:46 Basophils % (Manual) 1.0 % (0.0-1.8) 01/18/17 19:46 Metamyelocytes % 0 % 01/18/17 19:46 Myelocytes % 0 % 01/18/17 19:46 Promyelocytes % 0 % 01/18/17 19:46 Blast Cells % 0 % 01/18/17 19:46 Nucleated RBC % Not Reportable 01/18/17 19:46 Seg Neutrophils # 8.3 K/mm3 (1.8-7.7) H 01/23/17 05:15 Seg Neutrophils # Man 15.3 K/mm3 (1.8-7.7) H 01/18/17 19:46 Band Neutrophils # 1.5 K/mm3 01/18/17 19:46 Lymphocytes # (Manual) 1.1 K/mm3 (1.2-5.4) L 01/18/17 19:46 Abs React Lymphs (Man) 0.0 K/mm3 01/18/17 19:46 Monocytes # (Manual) 0.6 K/mm3 (0.0-0.8) 01/18/17 19:46 Eosinophils # (Manual) 0.0 K/mm3 (0.0-0.4) 01/18/17 19:46 Basophils # (Manual) 0.2 K/mm3 (0.0-0.1) H 01/18/17 19:46 Metamyelocytes # 0.0 K/mm3 01/18/17 19:46 Myelocytes # 0.0 K/mm3 01/18/17 19:46 Promyelocytes # 0.0 K/mm3 01/18/17 19:46 Blast Cells # 0.0 K/mm3 01/18/17 19:46 WBC Morphology Not Reportable 01/18/17 19:46 Hypersegmented Neuts Not Reportable 01/18/17 19:46 Hyposegmented Neuts Not Reportable 01/18/17 19:46 Hypogranular Neuts Not Reportable 01/18/17 19:46 Smudge Cells Not Reportable 01/18/17 19:46 Toxic Granulation Not Reportable 01/18/17 19:46 Toxic Vacuolation Not Reportable 01/18/17 19:46 Dohle Bodies Not Reportable 01/18/17 19:46 Pelger-Huet Anomaly Not Reportable 01/18/17 19:46 Vicente Rods Not Reportable 01/18/17 19:46 Platelet Estimate Appears normal 01/18/17 19:46 Clumped Platelets Not Reportable 01/18/17 19:46 Plt Clumps, EDTA Not Reportable 01/18/17 19:46 Large Platelets Not Reportable 01/18/17 19:46 Giant Platelets Not Reportable 01/18/17 19:46 Platelet Satelliting Not Reportable 01/18/17 19:46 Plt Morphology Comment Not Reportable 01/18/17 19:46 RBC Morphology Not Reportable 01/18/17 19:46 Dimorphic RBCs Not Reportable 01/18/17 19:46 Polychromasia Not Reportable 01/18/17 19:46 Hypochromasia Not Reportable 01/18/17 19:46 Poikilocytosis Not Reportable 01/18/17 19:46 Anisocytosis 1+ 01/18/17 19:46 Microcytosis Not Reportable 01/18/17 19:46 Macrocytosis Not Reportable 01/18/17 19:46 Spherocytes Not Reportable 01/18/17 19:46 Pappenheimer Bodies Not Reportable 01/18/17 19:46 Sickle Cells Not Reportable 01/18/17 19:46 Target Cells Not Reportable 01/18/17 19:46 Tear Drop Cells Not Reportable 01/18/17 19:46 Ovalocytes 1+ 01/18/17 19:46 Helmet Cells Not Reportable 01/18/17 19:46 [place] Bodies Not Reportable 01/18/17 19:46 [place] Rings Not Reportable 01/18/17 19:46 [place] Cells Not Reportable 01/18/17 19:46 Bite Cells Not Reportable 01/18/17 19:46 Crenated Cell Not Reportable 01/18/17 19:46 Elliptocytes Not Reportable 01/18/17 19:46 Acanthocytes (Spur) Not Reportable 01/18/17 19:46 Rouleaux Not Reportable 01/18/17 19:46 Hemoglobin C Crystals Not Reportable 01/18/17 19:46 Schistocytes Not Reportable 01/18/17 19:46 Malaria parasites Not Reportable 01/18/17 19:46 Thor Bodies Not Reportable 01/18/17 19:46 Hem Pathologist Commnt No 01/18/17 19:46 PT 12.7 Sec. (12.2-14.9) 01/18/17 19:46 INR 0.96 (0.87-1.13) 01/18/17 19:46 APTT < 20.0 Sec. (24.2-36.6) L 01/18/17 19:46 Sodium 138 mmol/L (137-145) 01/23/17 05:15 Potassium 3.5 mmol/L (3.6-5.0) L 01/23/17 05:15 Chloride 101.0 mmol/L (98-107) 01/23/17 05:15 Carbon Dioxide 24 mmol/L (22-30) 01/23/17 05:15 Anion Gap 17 mmol/L 01/23/17 05:15 BUN 16 mg/dL (7-17) 01/23/17 05:15 Creatinine 0.6 mg/dL (0.7-1.2) L 01/23/17 05:15 Estimated GFR > 60 ml/min 01/23/17 05:15 BUN/Creatinine Ratio 26.66 % 01/23/17 05:15 Glucose 135 mg/dL (65-100) H 01/23/17 05:15 POC Glucose 183 (70-105) H 01/24/17 11:42 Hemoglobin A1c 6.5 % (4-6) H 01/20/17 06:35 Calcium 8.4 mg/dL (8.4-10.2) 01/23/17 05:15 Total Bilirubin 0.2 mg/dL (0.1-1.2) 01/18/17 19:46 AST 20 units/L (5-40) 01/18/17 19:46 ALT 12 units/L (7-56) 01/18/17 19:46 Alkaline Phosphatase 70 units/L (35-129) 01/18/17 19:46 Total Creatine Kinase 58 units/L (30-135) 01/22/17 08:57 CK-MB (CK-2) 2.2 ng/mL (0.0-4.0) 01/22/17 08:57 CK-MB (CK-2) Rel Index 3.7 (0-4) 01/22/17 08:57 Troponin T 0.063 ng/mL (0.00-0.029) H D 01/23/17 14:02 Total Protein 7.8 g/dL (6.3-8.2) 01/18/17 19:46 Albumin 4.0 g/dL (3.9-5) 01/18/17 19:46 Albumin/Globulin Ratio 1.1 % 01/18/17 19:46 Triglycerides 102 mg/dL (2-149) 01/19/17 15:54 Cholesterol 165 mg/dL (50-199) 01/19/17 15:54 LDL Cholesterol Direct 112 mg/dL (50-130) 01/19/17 15:54 HDL Cholesterol 33 mg/dL (40-59) L 01/19/17 15:54 Cholesterol/HDL Ratio 5.00 % 01/19/17 15:54 Urine Color Yellow (Yellow) 01/20/17 16:45 Urine Turbidity Cloudy (Clear) 01/20/17 16:45 Urine pH 5.0 (5.0-7.0) 01/20/17 16:45 Ur Specific [place] 1.019 (1.003-1.030) 01/20/17 16:45 Urine Protein <15 mg/dl mg/dL (Negative) 01/20/17 16:45 Urine Glucose (UA) Neg mg/dL (Negative) 01/20/17 16:45 Urine Ketones Tr mg/dL (Negative) 01/20/17 16:45 Urine Blood Mod (Negative) 01/20/17 16:45 Urine Nitrite Neg (Negative) 01/20/17 16:45 Urine Bilirubin Neg (Negative) 01/20/17 16:45 Urine Urobilinogen < 2.0 mg/dL (<2.0) 01/20/17 16:45 Ur Leukocyte Esterase Mod (Negative) 01/20/17 16:45 Urine WBC (Auto) 50.0 /HPF (0.0-6.0) H 01/20/17 16:45 Urine RBC (Auto) 11.0 /HPF (0.0-6.0) 01/20/17 16:45 U Epithel Cells (Auto) 1.0 /HPF (0-13.0) 01/20/17 16:45 Amorphous Crystals Few 01/20/17 16:45
[2017-01-24] MEDS: ZOLOFT PO SCH (16:45)
[2017-01-24] MEDS: LOVENOX SUB-Q SCH (21:39)
[2017-01-24] MEDS: ANTIVERT PO PRN (23:04)
[2017-01-25] MEDS: MORPHINE IV PRN (00:12)
[2017-01-25] MEDS: NOVOLOG SUB-Q SCH ×2 (08:03→11:50)
[2017-01-25] MEDS: ZOLOFT PO SCH (09:34)
[2017-01-25] MEDS: TOPROL XL PO SCH (09:35)
[2017-01-25] MEDS: ECOTRIN PO SCH (09:35)
[2017-01-25] MEDS: ZESTRIL PO SCH (09:35)
[2017-01-25] MEDS: LEVAQUIN 750MG/150ML 750 MG/150 ML BAG IV SCH (09:35)
[2017-01-25 09:38] VITALS: BP 161/70
--- NOTE | 2017-01-25 10:42 | Discharge Summary ---
Providers - Providers Date of Admission: 01/18/17 19:43 Date of discharge: 01/25/17 Attending physician: JOSE RUELAS 01/19/17 15:29 Consult to Physician [CONS] Routine Consulting Provider: GAUDENCIO PUGA Reason For Exam: recurrent syncope Place consult to:: DR. PUGA Notified:: NIC Phone number called:: IN HOUSE Was contact made?: Yes If yes, spoke with:: NIC Vega Time called:: 16:04 Comment:: ROSY NOTIFIED 01/20/17 14:22 Physical Therapy Evaluation and Treat [CONS] Routine Comment: Reason For Exam: gait traning and functional mobility 01/22/17 13:25 Consult to Mental Health [CONS] Routine Reason For Exam: anxiety Place consult to:: psych Notified:: niels Phone number called:: [phone] Was contact made?: Yes If yes, spoke with:: niels Time called:: 14:36 Primary care physician: AZALIA HOBBS Hospitalization Condition: Good Hospital course: 86-year-old woman with past medical history of diabetes who presents after she was found on the floor by a neighbor. She denies any chest pain prior to it, she denies any prodrome or any symptoms prior to passing out. Of note she actually had multiple syncopal episodes recently, her family had brought her life alert which she refuses to use, She lives with her who is 95 years old, and he did not have any help in the house. CT/MRI head without any acute process. Troponine was elevated but family denies to get any further intervention. Placed on zoloft for anxiety by psych, she was discharged to SNF. Discharge diagnoses: 1. Syncope with dizziness Does not have any confusion or seizure like activity Concern for cardiac etiology given the presentation. 2D echocardiogram showed normal EF. Troponin was elevated but family refused further intervention Placed on meclizine for h/o chronic dizziness CT/MRI of brain obtained for possible CVA, report normal PT recommended 24/7 monitoring 2. S/P fall with facial injury CT/MRI of the head does not show any intracranial bleed or intracranial injury. 3. Nausea this is most likely due to concussion, treated with antiemetics 4. Diabetes Continue metformin, ADA diet 5. Physical debility - PT recommended [facility]/SNF 6. Hypertension, uncontrolled placed on lisinopril and metoprolol 7. UTI without sepsis, treated with levaquin 8. Elevated troponine followed by Cardiology troponin slightly elevated placed on aspirin, lipitor family does not want any further intervention 9. epigastric pain with h/o cholecystectomy, resolved, RUQ US unremarkable, likely due to GERD 10. Anxiety, placed on zoloft after psychiatry evaluation Disposition: DC/[place] SNF W [facility] Time spent for discharge: 35 minutes Core Measure Documentation - Palliative Care Palliative Care/ Comfort Measures: Not Applicable - Core Measures Any of the following diagnoses?: none Exam - Physical Exam Narrative exam: GENERAL: elderly WF lying on bed appeared to be in no discomfort. HEENT: Normocephalic. Atraumatic. No conjunctival congestion or icterus. Patient has moist mucous membranes. NECK: Supple. Trachea midline. CHEST/LUNGS: Clear to auscultated bilaterally, breathing nonlabored. No wheezes crackles or rhonchi. HEART/CARDIOVASCULAR: Regular in rate and rhythm. S1 and S2 positive. ABDOMEN: Abdomen is soft, nontender. Patient has normal bowel sounds. SKIN: There is no rash. Warm and dry. NEURO: No focal motor deficit. Follows command. MUSCULOSKELETAL: No joint effusion or tenderness. EXTRIMITY: No edema, no cyanosis or clubbing. PSYCH: Cooperative. - Constitutional Vitals: Temp Pulse Resp BP Pulse Ox 98.0 F 68 20 154/70 97 01/25/17 08:35 01/25/17 09:35 01/25/17 08:35 01/25/17 09:35 01/25/17 08:35 Plan Activity: up only with assistance Weight Bearing Status: Non-Weight Bearing Diet: diabetic Follow up with: PRIMARY CARE, [Referring] - 3-5 Days Prescriptions: AtorvaSTATin [Lipitor] 40 mg PO QHS #30 tablet Aspirin EC [Aspirin Enteric Coated TAB] 81 mg PO QDAY #30 tablet Meclizine [Antivert] 25 mg PO Q8H PRN #60 tablet PRN Reason: Vertigo metFORMIN [Glucophage] 500 mg PO BID #60 tablet Metoprolol Xl [Metoprolol SUCCINATE ER TAB] 50 mg PO QDAY #60 tablet Ondansetron [Zofran Odt] 4 mg PO Q8HR #12 tab.rapdis Sertraline [Zoloft] 25 mg PO QDAY #30 tablet
[2017-01-25] MEDS ORDERED: ZESTRIL PO SCH (10:43)
[2017-01-25] MEDS ORDERED: ZESTRIL PO ONE (11:00)
--- NOTE | 2017-01-25 17:34 | Progress Note ---
Subjective - Reason for Consult Consult date: 01/25/17 Reason for consult: Psychiatry Follow-up - Chief Complaint Chief complaint: Ms. More is an 86 year old white female admitted to the medical floor after she fell and was unconscious for an unspecified amount of time. Upon arrival to patient's room she was talking with her daughter and son. Patient explained what happened at home that caused the fall. Also, I attained collateral information from her daughter and son about the incident. Patient stated that she can't get to sleep, which has been an issue for months. She acknowledged that her keeps the TV on all night in turn maybe the cause of her insomnia. So we discussed good sleep hygiene for example, going to bed when sleepy and turning off the TV at night. Patient was started on Zoloft yesterday and she denied any side effects or allergic reaction to the medication. Patient stated that she has struggled with anxiety with minimum depression for a long period of time. She denies SI/HI's and AVH's at this time. Mental Status Exam - Vital signs Last Vital Signs Temp 98.0 F 01/25/17 08:35 Pulse 68 01/25/17 09:35 Resp 20 01/25/17 08:35 BP 164/70 01/25/17 09:35 Pulse Ox 97 01/25/17 08:35 - Exam Orientation: time, place, person Affect: other (anxious) Mood: anxious Thought content: other (None) Thought Process: Intact Perceptions: none Speech: normal rate and pattern Concentration: other (intact) Level of consciousness: alert Sleep Symptoms: Difficulty Falling Asleep Interaction: cooperative Assessment and Plan Impression: Patient rate her anxiety 6/10. This is most likely a long-standing generalized anxiety disorder. Children offered collateral information on patient. During initial consultation Her daughter also informed us that the patient's oldest daughter recently found out that she has 6 months to live. The family has withheld this information from the patient but at some point may tell her. Recommendation: Continue Zoloft 25 mg PO daily for anxiety and depression. Patient pending rehab placement. Will continue to assess patient daily.
[2017-01-26] MEDS ORDERED: ZESTRIL PO SCH (10:00)
== END 2017-01-25 14:40 | DRG 89 ==
LOC: ED 15:16 → 3A 19:43
PROVIDERS: ATTEND Internal Medicine
PROC: 0HQ1XZZ Repair Face Skin, External Approach (ICD-10-PCS; principal; 2017-01-18)
DX: S06.0X0A Concussion without loss of consciousness, initial encounter (principal); N39.0 Urinary tract infection, site not specified; S01.81XA Laceration without foreign body of other part of head, initial encounter; S01.419A Laceration without foreign body of unspecified cheek and temporomandibular area, initial encounter; S01.21XA Laceration without foreign body of nose, initial encounter; R55 Syncope and collapse; E11.9 Type 2 diabetes mellitus without complications; I45.10 Unspecified right bundle-branch block; D72.829 Elevated white blood cell count, unspecified; G30.9 Alzheimer's disease, unspecified; F02.80 Dementia in other diseases classified elsewhere, unspecified severity, without behavioral disturbance, psychotic disturbance, mood disturbance, and anxiety; D64.9 Anemia, unspecified; I10 Essential (primary) hypertension; F41.9 Anxiety disorder, unspecified; F32.9 Major depressive disorder, single episode, unspecified; K21.9 Gastro-esophageal reflux disease without esophagitis; W01.0XXA Fall on same level from slipping, tripping and stumbling without subsequent striking against object, initial encounter; Z88.0 Allergy status to penicillin; I25.2 Old myocardial infarction; Z86.73 Personal history of transient ischemic attack (TIA), and cerebral infarction without residual deficits; Z90.49 Acquired absence of other specified parts of digestive tract; Y93.89 Activity, other specified; Y92.098 Other place in other non-institutional residence as the place of occurrence of the external cause; Y99.8 Other external cause status
CPT/HCPCS: 36415; 70450; 70551; 71010; 76700; 80048; 80053; 80061; 81001; 82550; 82553; 82962; 83036; 84484; 85007; 85025; 85027; 85610; 85730; 87040; 90471; 90715; 93005; 93010; 93306; 96374; 96375; A9270-GY; J0360; J1650; J1815; J1956; J2270; J2405; J2765; J7030